=== PATIENT | male | born 1970 | race Caucasian/White ===

== ENCOUNTER 2020-04-29 07:44 | Outpatient (REF) | payer OTHER, SELFPAY ==
[2020-04-29 10:17] LABS: MANUAL DIFF FLAG NO
[2020-04-29 10:22] LABS: Basophils Percent Auto 0.4 % (0-2); Eosinophils Absolute Auto 0.1 X10*3/uL (0.0-0.4); Eosinophils Percent Auto 1.4 % (0-4); Hemoglobin 19.2 g/dl (14.0-18.0); Imm Gran Abs Auto 0.01 X10*3/uL (0.00-0.03); Imm Gran Pct Auto 0.2 % (0.0-0.4); Lymphocytes Absolute Auto 1.5 X10*3/uL (1.2-4.9); Lymphocytes Percent Auto 31.2 % (20-40); Mean Corpuscular HGB Conc 34.5 g/dl (31.0-36.0); Mean Corpuscular Hemoglobin 30.6 pg (27.0-33.0); Mean Corpuscular Volume 88.7 fL (80-98); Mean Platelet Volume 11.2 fL (9.4-12.4); Monocytes Absolute Auto 0.5 X10*3/uL (0.1-1.2); Monocytes Percent Auto 10.7 % (2-11); Neutrophils Absolute Auto 2.7 X10*3/uL (2.0-8.3); Neutrophils Percent Auto 56.1 % (45-73); Platelet Count 205 X10*3/uL (160-400); Red Blood Count 6.28 X10*6/uL (4.60-5.80); Red Cell Distribution Width 13.4 % (11.0-16.0); White Blood Count 4.8 X10*3/uL (4.8-10.8)
[2020-04-29 10:28] LABS: Hematocrit 55.7 % (42-52)
[2020-04-29 10:47] LABS: Alanine Aminotransferase 35 U/L (0-40); Albumin Level 4.2 g/dL (3.5-5.0); Alkaline Phosphatase 65 U/L (39-117); Anion Gap 14 (12-20); Aspartate Amino Transferase 28 U/L (5-37); Bilirubin Total 2.5 mg/dL (0.0-1.0); Blood Urea Nitrogen 18 mg/dL (9-16); Carbon Dioxide 28 mmol/L (22-29); Chloride 101 mmol/L (96-108); Cholesterol 216 mg/dL; Estimated Average Glucose 100 mg/dL; Estimated Glomerular Filt Rate > 60; Glucose Fasting 82 mg/dL (60-99); HDL Cholesterol 45 mg/dL; Hemoglobin A1c % 5.1 %; LDL Cholesterol Calculated 160 mg/dl; Potassium 4.6 mmol/l (3.3-5.1); Sodium 138 mmol/L (135-145); Total Protein 7.2 g/dL (6.5-8.0); Triglycerides 58 mg/dL
[2020-04-29 11:07] LABS: Creatinine Urine 122.12 mg/dL; Microalbum/Creatinine Ratio Ur 4.9 ug/mg cr
[2020-04-29 11:10] LABS: TSH reflex Free T4 1.18 mIU/mL (0.32-4.0)
== END 2020-04-29 07:45 | disposition home or self-care (01) ==
LOC: HO.10HDL 07:44
PROVIDERS: Visit Provider Physician Assistant
DX: I10 Essential (primary) hypertension (principal); Z13.1 Encounter for screening for diabetes mellitus; Z13.220 Encounter for screening for lipoid disorders; Z13.29 Encounter for screening for other suspected endocrine disorder
CPT/HCPCS: 36415; 80053; 80061; 82043; 83036; 84443; 85025

== ENCOUNTER → 2020-05-30 14:47 | Outpatient (BNVA) | payer OTHER, SELFPAY | PROVIDERS: PCP Physician Assistant; Visit Provider Internal Medicine | DX: R06.02 Shortness of breath (principal); R68.3 Clubbing of fingers; G47.33 Obstructive sleep apnea (adult) (pediatric) | CPT/HCPCS: 99202 ==

== ENCOUNTER 2020-06-05 05:17 | Emergency (ER) | payer OTHER, SELFPAY ==
--- NOTE | 2020-06-05 05:27 | CT_ITS ---
EXAMINATION: CT CERVICAL SPINE WITHOUT CONTRAST CLINICAL INFORMATION: Left-sided neck pain COMPARISON: None TECHNIQUE: Multidetector helical imaging was performed through the cervical spine. Coronal and sagittal reformatted images were created. This CT examination was performed using dose optimization techniques as appropriate, variously including the following: *Automated exposure control *Adjustment of mA and/or kV according to patient size (this includes techniques or standardized protocols for targeted exams where dose is matched to indication/reason for exam; i.e. extremities or head) *Use of iterative reconstruction technique DLP: 577 mGy-cm FINDINGS: There is slight reversal of the normal cervical lordosis. There is anatomic alignment of the vertebral bodies and posterior elements. Vertebral body heights are maintained. There is degenerative change at the atlantodens articulation. There is disc space narrowing at C4-C5 and C5-C6 with associated endplate osteophytes. There is mild bony foraminal narrowing on the left at C4-C5 and on the right at C4-C5 and C5-C6. No evidence of acute fracture. Chronic appearing calcifications are present posterior to the lower cervical spine. No prevertebral soft tissue swelling. Visualized portions of the lung apices demonstrate scarring. The thyroid gland is unremarkable. CT/CT cervical spine wo con IMPRESSION: Chronic/degenerative changes as described above. No acute findings identified.
--- NOTE | 2020-06-05 05:27 | ED.NECK ---
HPI - Neck Pain/Injury General Chief Complaint: Neck Pain/Injury Stated Complaint: neck pain Time Seen by Provider: 06/05/20 05:19 Source: patient Mode of arrival: ambulatory Limitations: no limitations History of Present Illness complaint: neck pain Onset (ago): day(s) (2) Place: home Radiation: left lateral Severity: severe Quality: sharp Duration: constant Relieving factors: none Exacerbating factors: movement of extremity and movement of neck Context: other (bought a new pillow woke up with neck pain) Associated symptoms: tingling (in LUE) Treatments prior to arrival: ibuprofen Related Data Home Medications Medication Instructions Recorded Confirmed valacyclovir 500 mg tablet mg PO 04/20/20 04/20/20 Previous Rx's Medication Instructions Recorded losartan 50 mg-hydrochlorothiazide 1 tab PO DAILY 30 Days #30 tab 05/24/20 12.5 mg tablet sertraline 50 mg tablet 50 mg PO DAILY 30 Days #30 tab 05/24/20 Allergies Allergy/AdvReac Type Severity Reaction Status Date / Time No Known Allergies Allergy Verified 04/20/20 16:25 Review of Systems Review of Systems: Constitutional : No Fever, No Chills ENT/Mouth : No Ear Pain, No Hoarseness, No sore throat, pos neck pain Eyes: No Eye Pain, No Swelling, No Redness, No Foreign Body Cardiovascular : No Chest Pain, No SOB Respiratory : No Cough, No Dyspnea Gastrointestinal : No Nausea, No Vomiting, No Diarrhea, No abdominal Pain Genitourinary : No Dysuria, No Hematuria Musculoskeletal : no joint pain, No Myalgias, No Joint Swelling Skin : No Skin lacerations, No rash Neuro : No Weakness, pos Numbness, No Loss of Consciousness, No Dizziness, No Headache Psych : No Anxiety/Panic, No Depression Heme/Lymph: no easy bruising, no Lymphadenopathy Endocrine : No Polyuria, No Polydipsia All other systems reviewed and are negative [facility] Past Medical History Attestation statement: The following information was validated with the patient. Medical History ZAHRAA (obstructive sleep apnea) Surgical History History of excision of lesion Family History Family History Father Medical history unknown Primary cancer of kidney Mother Hypertension Heart attack Paternal Uncle Brain cancer Brother Hypertension Social History Social History Alcohol intake: current Alcohol intake frequency: a few times a month Alcohol type: hard liquor Smoking Status: Never smoker Smoked in Last 30 Days: No Advance Directives: No Advance Directives Information Provided: No Physical Exam Vital Signs: Vital Signs: Last Vital Signs Temp 98.0 F 06/05/20 05:29 Pulse 76 06/05/20 06:27 Resp 18 06/05/20 06:27 BP 169/75 H 06/05/20 05:29 Pulse Ox 97 06/05/20 06:27 Body Mass Index 27.4 Appearance: Alert. Oriented X3. No acute distress. Eyes: Pupils equal, round and reactive to light. ENT: Pharynx normal. Neck: held in stiff spasm position, pain with turning to left, + spurlings on left side, pain on lateral left vertebral bodies no step offs, distal 2+ radial pulse, reports whole arm feels tingly, good strength CVS: Normal heart rate and rhythm. Pulses normal. Respiratory: No respiratory distress. Breath sounds normal. Abdomen: Soft and nontender. Skin: Skin warm and dry. Normal skin color. Normal skin turgor. Extremities: No lower extremity edema. No calf ttp Neuro: Oriented X 3. No motor deficit. No sensory deficit. Course Course Course Narrative: pain is out of proportion still uncomfortable will obtain labs and place IV may need MRI or CTA of neck at this time after medication, neuro exam has improved but still with significant pain, strength equal, SILT diffusely, will obtain CTA to r/o dissection signed out to Dr. Geronimo pending CTA MDM - Neck Pain/Injury MDM Narrative Medical decision making narrative: 49 yo male with reproduceable neck pain on left side with reported tingling in whole arm - will need pain control to improve spasm, CT scan for mass/obvious bulge - will recheck once pain more under control Lab Data Result diagrams: 06/05/20 06:19 06/05/20 06:19 Labs: Lab Results 06/05/20 06/05/20 06/05/20 Range/Units 06:19 06:19 06:19 WBC 6.7 (4.8-10.8) X10*3/uL RBC 5.98 H (4.60-5.80) X10*6/uL Hgb 18.5 H (14.0-18.0) g/dl Hct 52.6 H (42-52) % MCV 88.0 (80-98) fL MCH 30.9 (27.0-33.0) pg MCHC 35.2 (31.0-36.0) g/dl RDW 12.7 (11.0-16.0) % Plt Count 178 (160-400) X10*3/uL MPV 10.6 (9.4-12.4) fL Immature Gran % (Auto) 0.1 (0.0-0.4) % Neut % (Auto) 78.0 H (45-73) % Lymph % (Auto) 14.9 L (20-40) % [place] % (Auto) 5.8 (2-11) % Eos % (Auto) 0.9 (0-4) % Baso % (Auto) 0.3 (0-2) % Lymph # (Auto) 1.0 L (1.2-4.9) X10*3/uL [place] # (Auto) 0.4 (0.1-1.2) X10*3/uL Eos # (Auto) 0.1 (0.0-0.4) X10*3/uL Baso # (Auto) 0.0 (0.0-0.2) X10*3/uL Abs Immat Gran (auto) 0.01 (0.00-0.03) X10*3/uL Absolute Neuts (auto) 5.2 (2.0-8.3) X10*3/uL Absolute Nucleated RBC 0.000 (0.0-0.012) X10*3/uL Nucleated RBC % (auto) 0.0 (0.0-0.2) /100WBC Hold Blue Top SEE NOTE Sodium 140 (135-145) mmol/L Potassium 4.1 (3.3-5.1) mmol/l Chloride 104 (96-108) mmol/L Carbon Dioxide 27 (22-29) mmol/L Anion Gap 13 (12-20) BUN 22 H (9-16) mg/dL Creatinine 1.04 (0.5-1.4) mg/dL Estim Creat Clear Calc 117.9 Estimated GFR > 60 Random Glucose 111 (60-115) mg/dL Calcium 9.2 (8.4-10.2) mg/dL Discharge Plan Discharge Clinical Impression: Acute neck pain Prescriptions: No Action valacyclovir 500 mg tablet PO RF: 0 losartan-hydrochlorothiazide 50-12.5 mg tablet 1 tab PO DAILY 30 Days Qty: 30 RF: 1 sertraline 50 mg tablet 50 mg PO DAILY 30 Days Qty: 30 RF: 1
[2020-06-05 05:29] VITALS: BP 169/75; PULSE 75; RESP 16; TEMP 36.7; O2SAT 99; BMI 27.4
[2020-06-05] MEDS: oxyCODONE HCl Immed Release 5 MG TABLET 10 MG PO (05:34)
[2020-06-05] MEDS: diazePAM 5 MG TABLET PO (05:35)
[2020-06-05] MEDS: predniSONE 20 MG TABLET 60 MG PO (05:35)
[2020-06-05 06:23] LABS: Basophils Percent Auto 0.3 % (0-2); Eosinophils Absolute Auto 0.1 X10*3/uL (0.0-0.4); Eosinophils Percent Auto 0.9 % (0-4); Hematocrit 52.6 % (42-52); Hemoglobin 18.5 g/dl (14.0-18.0); Imm Gran Abs Auto 0.01 X10*3/uL (0.00-0.03); Imm Gran Pct Auto 0.1 % (0.0-0.4); Lymphocytes Percent Auto 14.9 % (20-40); Mean Corpuscular HGB Conc 35.2 g/dl (31.0-36.0); Mean Corpuscular Hemoglobin 30.9 pg (27.0-33.0); Mean Platelet Volume 10.6 fL (9.4-12.4); Monocytes Absolute Auto 0.4 X10*3/uL (0.1-1.2); Monocytes Percent Auto 5.8 % (2-11); Neutrophils Absolute Auto 5.2 X10*3/uL (2.0-8.3); Platelet Count 178 X10*3/uL (160-400); Red Blood Count 5.98 X10*6/uL (4.60-5.80); Red Cell Distribution Width 12.7 % (11.0-16.0); White Blood Count 6.7 X10*3/uL (4.8-10.8)
[2020-06-05] MEDS: 0.9 % Sodium Chloride 1,000 ML 999 ML IVCONT (06:23)
[2020-06-05] MEDS: HYDROmorphone HCl 1 MG/ML SYRINGE IVPUSH (06:23)
[2020-06-05 06:24] LABS: MANUAL DIFF FLAG NO
[2020-06-05 06:27] VITALS: PULSE 76; RESP 18; O2SAT 97
[2020-06-05 06:47] LABS: Anion Gap 13 (12-20); Blood Urea Nitrogen 22 mg/dL (9-16); Calcium 9.2 mg/dL (8.4-10.2); Carbon Dioxide 27 mmol/L (22-29); Chloride 104 mmol/L (96-108); Creatinine Clr Calc Pharmacy 117.9; Estimated Glomerular Filt Rate > 60; Glucose Random 111 mg/dL (60-115); Potassium 4.1 mmol/l (3.3-5.1); Sodium 140 mmol/L (135-145)
--- NOTE | 2020-06-05 06:54 | CT_ITS ---
EXAMINATION: CT HEAD WITHOUT CONTRAST CT ANGIOGRAM HEAD AND NECK CLINICAL INFORMATION: Left neck pain. Rule out dissection. COMPARISON: None TECHNIQUE: Noncontrast CT examination of the head was performed. Test bolus sequences followed by intravenous administration 70 mL of Omnipaque 350 intravenous contrast. Helical imaging was performed in the axial plane from the mediastinum to the skull vertex. Delayed postcontrast imaging of the head was also performed. The data was processed at the cytogenetics technologist's workstation for generation of MIP sequences. Three-dimensional volume rendered reformatted images were also generated at an offline 3-D workstation. This CT examination was performed using dose optimization techniques as appropriate, variously including the following: *Automated exposure control *Adjustment of mA and/or kV according to patient size (this includes techniques or standardized protocols for targeted exams where dose is matched to indication/reason for exam; i.e. extremities or head) *Use of iterative reconstruction technique The degree of stenosis determined by NASCET criteria. DLP: 2916 mGy-cm FINDINGS: SOFT TISSUES AND LUNG APICES: No overt abnormality is appreciated. CTA NECK: The aortic arch has a classic configuration and the major arch vessel origins are non-stenotic. The vertebral arteries are co-dominant and both vertebral origins are widely patent. Both common carotid arteries are normal in course and caliber. Both internal carotid arteries demonstrate mild atherosclerotic plaque without significant stenosis. CTA HEAD: There is normal opacification of the major intracranial vessels. No acute proximal large vessel occlusion, focal flow-limiting stenosis, or saccular intracranial aneurysm is identified. Incidental fenestration of the basilar artery. Right A1 is hypoplastic, a normal variant. No abnormal parenchymal enhancement or regional oligemia is visualized. HEAD (noncontrast and delayed): No intracranial mass, intercerebral edema, hemorrhage, or midline shift is evident. The ventricles and sulci are stable in size and configuration. No extra-axial collections are appreciated. No pathologic intracranial enhancement. Dural sinuses are patent. The paranasal sinuses are well-aerated and clear. CT/CT angio head neck IMPRESSION: * No evidence of arterial dissection within the neck. * No large vessel occlusion or hemodynamically significant stenosis within the arterial vasculature of the head and neck. 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 * No acute intracranial pathology. * Unremarkable CT examination of the head.
[2020-06-05] MEDS: iohexoL 350 MG/ML 100 ML INFUS..BTL IV (08:20)
[2020-06-05] MEDS: Ketorolac Tromethamine 30 MG/ML VIAL IVPUSH (09:57)
[2020-06-05 10:16] VITALS: BP 150/88; PULSE 82; RESP 18
== END 2020-06-05 10:17 | disposition home or self-care (01) ==
PROVIDERS: Emergency Provider Emergency Medicine; PCP Physician Assistant
DX: M54.2 Cervicalgia (principal); Z79.899 Other long term (current) drug therapy
CPT/HCPCS: 36415; 70496; 70498; 72125; 80048; 85025; 96361; 96374; 96375; 99284; J1170; J1885; Q9967

== ENCOUNTER → 2020-06-20 11:02 | Outpatient (REF) | payer OTHER, SELFPAY | LOC: HO.SL 11:02 | PROVIDERS: PCP Physician Assistant; Visit Provider Internal Medicine | DX: G47.33 Obstructive sleep apnea (adult) (pediatric) (principal) | CPT/HCPCS: 95806 ==

== ENCOUNTER → 2020-07-13 15:20 | Outpatient (BNVA) | payer OTHER, SELFPAY | PROVIDERS: PCP Physician Assistant; Visit Provider Internal Medicine | DX: G47.33 Obstructive sleep apnea (adult) (pediatric) (principal) | CPT/HCPCS: 99212 ==

== ENCOUNTER 2021-01-06 08:34 | Outpatient (REF) | payer OTHER, SELFPAY ==
[2021-01-06 11:43] LABS: MANUAL DIFF FLAG NO
[2021-01-06 11:54] LABS: Basophils Percent Auto 0.2 % (0-2); Eosinophils Percent Auto 0.9 % (0-4); Hematocrit 50.9 % (42-52); Hemoglobin 17.6 g/dl (14.0-18.0); Imm Gran Abs Auto 0.01 X10*3/uL (0.00-0.03); Imm Gran Pct Auto 0.2 % (0.0-0.4); Immature Retic Fraction 12.3 % (2.3-13.4); Lymphocytes Absolute Auto 1.5 X10*3/uL (1.2-4.9); Lymphocytes Percent Auto 33.4 % (20-40); Mean Corpuscular HGB Conc 34.6 g/dl (31.0-36.0); Mean Corpuscular Hemoglobin 31.3 pg (27.0-33.0); Mean Corpuscular Volume 90.4 fL (80-98); Mean Platelet Volume 11.2 fL (9.4-12.4); Monocytes Absolute Auto 0.4 X10*3/uL (0.1-1.2); Monocytes Percent Auto 8.8 % (2-11); Neutrophils Absolute Auto 2.5 X10*3/uL (2.0-8.3); Neutrophils Percent Auto 56.5 % (45-73); Platelet Count 234 X10*3/uL (160-400); Red Blood Count 5.63 X10*6/uL (4.60-5.80); Retic HGB Equivalent 35.4 pg (30.0-35.0); Reticulocyte Percent 1.8 % (0.5-1.8); Reticulocytes Absolute 0.102 X10*6/uL (0.026-0.095); White Blood Count 4.4 X10*3/uL (4.8-10.8)
[2021-01-06 12:00] LABS: Appearance Urine CLEAR; Color Urine YELLOW; Glucose Urine UA NEG (NEG); Leukocyte Esterase Urine NEG (NEG); Nitrite Urine NEG (NEG); Specific Gravity - Urine 1.015 (1.005-1.025); Urine Blood NEG (NEG); Urine Ketones NEG (NEG); Urine Protein TRACE MG/DL (NEG-TRACE)
[2021-01-06 12:20] LABS: Alanine Aminotransferase 23 U/L (0-40); Albumin Level 4.3 g/dL (3.5-5.0); Alkaline Phosphatase 64 U/L (39-117); Anion Gap 13 (12-20); Aspartate Amino Transferase 18 U/L (5-37); Bilirubin Total 2.2 mg/dL (0.0-1.0); Blood Urea Nitrogen 18 mg/dL (9-16); Calcium 9.8 mg/dL (8.4-10.2); Carbon Dioxide 28 mmol/L (22-29); Chloride 104 mmol/L (96-108); Cholesterol 232 mg/dL; Estimated Glomerular Filt Rate > 60; Glucose Random 91 mg/dL (60-115); HDL Cholesterol 47 mg/dL; Iron 187 mcg/dL (45-160); LDL Cholesterol Calculated 171 mg/dl; Percent Iron Saturation 64 % (15-50); Potassium 4.5 mmol/L (3.3-5.1); Sodium 140 mmol/L (135-145); Total Iron Binding Capacity 291 mcg/dL (228-428); Total Protein 7.3 g/dL (6.5-8.0); Triglycerides 71 mg/dL; Unsaturated Iron Binding 104 ug/dL
[2021-01-06 12:41] LABS: Ferritin 303 ng/mL (20-250); Free T4 (Free Thyroxine) 1.16 ng/dL (0.71-1.85); Thyroid Stimulating Hormone 1.02 uIU/mL (0.32-4.0)
[2021-01-06 12:51] LABS: Folate 11.3 ng/mL (> or = 4.0); Vitamin B12 352 pg/mL (200-900)
[2021-01-06 12:53] LABS: Erythrocyte Sedimentation Rate 2 MM/HR (0-15)
[2021-01-06 12:58] LABS: RBC Urine 0 /HPF (0); WBC Urine 0-2 /HPF (0-4)
== END 2021-01-06 08:35 | disposition home or self-care (01) ==
LOC: HO.HMGCLDS 08:34
PROVIDERS: PCP Physician Assistant; Visit Provider Internal Medicine
DX: D75.1 Secondary polycythemia (principal); E78.00 Pure hypercholesterolemia, unspecified
CPT/HCPCS: 36415; 80053; 80061; 81001; 82607; 82728; 82746; 83540; 84439; 84443; 85025; 85045; 85652

== ENCOUNTER 2021-04-27 15:19 | Outpatient (REF) | payer OTHER, SELFPAY ==
--- NOTE | ~2021-04-27 | US_ITS ---
EXAMINATION: US ABDOMEN COMPLETE CLINICAL INFORMATION: Other specified abnormal findings of blood chemistry. Right upper quadrant/epigastric pain. COMPARISON: None TECHNIQUE: Real-time imaging of the abdominal viscera. FINDINGS: PANCREAS: Normal. ABDOMINAL AORTA: The proximal, mid, and distal segments are normal in caliber. INFERIOR VENA CAVA: Visualized portions are normal. LIVER: Normal. The liver is normal in size. The liver contour is normal. Parenchymal echogenicity is normal. No focal hepatic lesion. There is no intrahepatic biliary duct dilatation seen. GALLBLADDER: The gallbladder is contracted limiting evaluation of wall thickness. The gallbladder is physiologically distended without evidence of stones, sludge, wall thickening or pericholecystic fluid. A 2 mm polyp is evident within the gallbladder. No sonographic Erickson sign is detected. COMMON BILE DUCT: Normal in caliber measuring 0.5 cm in diameter. RIGHT KIDNEY: Normal. No hydronephrosis. No renal calculi or focal parenchymal lesions. The kidney measures 12.9 cm in maximum dimension. LEFT KIDNEY: Normal. No hydronephrosis. No renal calculi or focal parenchymal lesions. The kidney measures 14.3 cm in maximum dimension. SPLEEN: Normal. The spleen measures 12.8 cm in maximum dimension. FREE FLUID: None. US/US abdomen complete IMPRESSION: 1. Small polyp within the contracted gallbladder. 2. Otherwise unremarkable abdominal ultrasound.
== END 2021-04-27 15:20 | disposition home or self-care (01) ==
LOC: HO.US 15:19
PROVIDERS: PCP Physician Assistant; Visit Provider Internal Medicine
DX: E80.6 Other disorders of bilirubin metabolism (principal); R79.89 Other specified abnormal findings of blood chemistry
CPT/HCPCS: 76700

== ENCOUNTER → 2021-05-23 08:57 | Outpatient (BNVA) | payer OTHER, SELFPAY | PROVIDERS: PCP Physician Assistant; Visit Provider Urology ==

== ENCOUNTER 2021-05-25 10:01 | Outpatient (REF) | payer OTHER, SELFPAY ==
--- NOTE | ~2021-05-25 | FL_ITS ---
EXAMINATION: UPPER GI AIR-CONTRAST STUDY WITH BARIUM SWALLOW CLINICAL INFORMATION: Epigastric pain. COMPARISON: None. TECHNIQUE: Routine upper GI air-contrast study and barium swallow was performed in upright view. FINDINGS: Following oral administration of thick barium and effervescent granules in upright view, there is normal propagation of bolus from the oral cavity through the pharynx and esophagus and into the stomach without any evidence of obstruction, narrowing or stricture. On oral administration of barium-coated turkey, there is normal propagation of bolus from the oral cavity through the pharynx and esophagus and into the stomach. Following placing patient in supine and prone lying position, there is mild gastroesophageal reflux without hiatal hernia. The course, caliber and peristalsis of the stomach, duodenal bulb and duodenal sweep are normal. The mucosal pattern of the stomach and the duodenal bulb is normal. FL/FL upper GI w air w Ba Swallow IMPRESSION: Mild gastroesophageal reflux without hiatal hernia. No obstructive or constricting lesions seen in the esophagus. The stomach and the duodenum are unremarkable.
== END 2021-05-25 10:02 | disposition home or self-care (01) ==
LOC: HO.XRAY 10:01
PROVIDERS: PCP Physician Assistant; Visit Provider Nurse Practitioner Family
DX: R10.13 Epigastric pain (principal)
CPT/HCPCS: 74246

== ENCOUNTER 2021-06-02 08:19 | Outpatient (REF) | payer OTHER, SELFPAY ==
[2021-06-02 09:17] LABS: Bilirubin Direct 0.5 mg/dL (0.0-0.5)
[2021-06-02 09:29] LABS: Lactate Dehydrogenase 162 U/L (118-273)
[2021-06-02 09:37] LABS: Ferritin 238 ng/mL (20-250); Prostate Specific Antigen 1.57 ng/mL (<0.05-4.0)
[2021-06-05 11:36] LABS: Haptoglobin 89 mg/dL (43-212)
[2021-06-07 15:17] LABS: Testosterone, Free 100.3 pg/mL (35.0-155.0); Testosterone, Total 619 ng/dL (250-1100)
== END 2021-06-02 08:20 | disposition home or self-care (01) ==
LOC: HO.LAB 08:19
PROVIDERS: Urology; Visit Provider Internal Medicine
DX: Z12.5 Encounter for screening for malignant neoplasm of prostate (principal); N52.9 Male erectile dysfunction, unspecified; E29.1 Testicular hypofunction
CPT/HCPCS: 36415; 82248; 82728; 83010; 83615; 84153; 84402; 84403

== ENCOUNTER 2021-06-22 09:12 | Outpatient (REF) | payer OTHER, SELFPAY ==
[2021-06-22 11:35] LABS: Blood Urea Nitrogen 18 mg/dL (9-16); Estimated Glomerular Filt Rate > 60
== END 2021-06-22 09:13 | disposition home or self-care (01) ==
LOC: HO.LAB 09:12
PROVIDERS: PCP Physician Assistant; Referring Provider Physician Assistant; Visit Provider Surgery
DX: R10.11 Right upper quadrant pain (principal); G89.29 Other chronic pain
CPT/HCPCS: 36415; 82565; 84520; 99202

== ENCOUNTER 2021-07-06 06:51 | Outpatient (REF) | payer OTHER, SELFPAY ==
--- NOTE | ~2021-07-06 | CT_ITS ---
EXAMINATION: CT ABDOMEN AND PELVIS WITH CONTRAST CLINICAL INFORMATION: Right upper quadrant pain COMPARISON: Previous abdominal ultrasound April 2021 TECHNIQUE: Multidetector volumetric images were obtained from the superior aspect of the liver through the pubic symphysis following administration 85 mL of Omnipaque 350 intravenous contrast. Sagittal and coronal reformatted images were obtained on the technologist's workstation. Oral contrast: Yes This CT examination was performed using dose optimization techniques as appropriate, variously including the following: *Automated exposure control *Adjustment of mA and/or kV according to patient size (this includes techniques or standardized protocols for targeted exams where dose is matched to indication/reason for exam; i.e. extremities or head) *Use of iterative reconstruction technique DLP: 587 mGy-cm FINDINGS: LUNG BASES: The visualized lung bases are unremarkable. LIVER, GALLBLADDER, AND BILIARY TREE: The liver is normal in size, shape, and attenuation. No focal hepatic lesion or biliary ductal dilatation is present. The gallbladder is unremarkable with no evidence of radiopaque gallstones, gallbladder wall thickening, or obvious pericholecystic inflammatory changes. PANCREAS: Unremarkable. SPLEEN: Unremarkable. ADRENAL GLANDS: Unremarkable. KIDNEYS AND URETERS: The kidneys are normal in size, shape, and attenuation. No hydronephrosis, hydroureter, or calculi seen. No perinephric stranding. BLADDER: Not optimally distended. GASTROINTESTINAL TRACT: There is stool throughout the colon. Small and large bowel is otherwise unremarkable. The appendix is slightly enlarged measuring up to10 mm. There is some air seen in the base of the appendix. The remainder of the appendix does not have any air. The periappendiceal fat is normal. No fat stranding or surrounding fluid is seen. It is difficult to exclude early appendicitis and clinical correlation is recommended. ABDOMINAL WALL: No significant hernia is appreciated. LYMPH NODES: Normal. VASCULAR: Unremarkable. PELVIC VISCERA: The prostate gland is slightly enlarged and protrudes into the base of the bladder. OSSEOUS STRUCTURES: There is mild curvature of the lumbar spine to the right. CT/CT abdomen pelvis w con IMPRESSION: Slightly dilated appendix. The periappendiceal fat is normal. It is difficult to exclude early or mild appendicitis Clinical correlation is recommended. Stool throughout the colon questionable for constipation. Slightly enlarged prostate gland. 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 Fleischner guidelines were followed.
[2021-07-06] MEDS: iohexoL 350 MG/ML 100 ML INFUS..BTL IV (09:41)
[2021-07-06] MEDS: Barium Sulfate Oral (Vanilla) 450 ML ORAL.SUSP 900 ML PO (09:42)
== END 2021-07-06 06:52 | disposition home or self-care (01) ==
LOC: HO.CT 06:51
PROVIDERS: Visit Provider Surgery
DX: G89.29 Other chronic pain (principal); R10.11 Right upper quadrant pain; N52.9 Male erectile dysfunction, unspecified
CPT/HCPCS: 74177; Q9967

== ENCOUNTER → 2021-07-17 09:47 | Outpatient (BNVA) | payer OTHER, SELFPAY | PROVIDERS: PCP Physician Assistant; Referring Provider Physician Assistant; Visit Provider Surgery | DX: R10.11 Right upper quadrant pain (principal) | CPT/HCPCS: 99212 ==

== ENCOUNTER 2021-09-04 16:48 | Outpatient (REF) | payer OTHER, SELFPAY ==
[2021-09-04 17:51] LABS: Syphilis Screen Nonreactive (Nonreactive)
[2021-09-05 05:10] LABS: HIV AB/AG Nonreactive (Nonreactive); HIV Num 1 0.07 S/CO (0.00-0.99); ~HepC Num1 0.15 S/CO (0.00-0.79); ~Hepatitis C Antibody Nonreactive (Nonreactive)
[2021-09-05 06:30] LABS: CT PCR NOT DETECTED (Not Detect.); NG PCR NOT DETECTED (Not Detect.)
[2021-09-09 21:51] LABS: HSV 1 IgM IFA Negative (Negative); HSV 2 IgM IFA Negative (Negative)
== END 2021-09-04 16:49 | disposition home or self-care (01) ==
LOC: HO.LAB 16:48
PROVIDERS: PCP Physician Assistant; Visit Provider Nurse Practitioner Family
DX: Z11.3 Encounter for screening for infections with a predominantly sexual mode of transmission (principal); Z11.4 Encounter for screening for human immunodeficiency virus [HIV]; R21 Rash and other nonspecific skin eruption
CPT/HCPCS: 86695; 86696; 86780; 86803; 87389; 87491; 87591

== ENCOUNTER 2022-03-12 07:14 | Outpatient (REF) | payer OTHER, SELFPAY ==
[2022-03-12 07:41] LABS: Hematocrit 52.9 % (42.0-52.0); Hemoglobin 18.3 g/dl (14.0-18.0); Mean Corpuscular HGB Conc 34.6 g/dl (31.0-36.0); Mean Corpuscular Hemoglobin 30.2 pg (27.0-33.0); Mean Corpuscular Volume 87.3 fL (80.0-98.0); Mean Platelet Volume 10.1 fL (9.4-12.4); Platelet Count 235 X10*3/uL (160-400); Red Blood Count 6.06 X10*6/uL (4.60-5.80); Red Cell Distribution Width 13.2 % (11.0-16.0); White Blood Count 5.1 X10*3/uL (4.8-10.8)
[2022-03-12 08:09] LABS: Alanine Aminotransferase 33 U/L (0-40); Albumin Level 4.2 g/dL (3.5-5.0); Alkaline Phosphatase 68 U/L (39-117); Anion Gap 14 (12-20); Aspartate Amino Transferase 22 U/L (5-37); Bilirubin Total 1.6 mg/dL (0.0-1.0); Blood Urea Nitrogen 18 mg/dL (9-16); Calcium 9.9 mg/dL (8.4-10.2); Carbon Dioxide 28 mmol/L (22-29); Chloride 103 mmol/L (96-108); Estimated Glomerular Filt Rate > 60; Glucose Fasting 106 mg/dL (60-99); Potassium 4.8 mmol/L (3.3-5.1); Sodium 140 mmol/L (135-145); Total Protein 7.3 g/dL (6.5-8.0)
[2022-03-12 08:31] LABS: Prostate Specific Antigen Scr 1.37 ng/mL (<0.05-4.0); TSH reflex Free T4 1.37 uIU/mL (0.32-4.0)
== END 2022-03-12 07:15 | disposition home or self-care (01) ==
LOC: HO.LAB 07:14
PROVIDERS: PCP Physician Assistant; Visit Provider Physician Assistant
DX: Z12.5 Encounter for screening for malignant neoplasm of prostate (principal); I10 Essential (primary) hypertension
CPT/HCPCS: 36415; 80053; 84153; 84443; 85027

== ENCOUNTER 2022-07-06 08:04 | Outpatient (REF) | payer OTHER, SELFPAY ==
--- NOTE | ~2022-07-06 | XR_ITS ---
EXAMINATION: XR HAND, RIGHT CLINICAL INFORMATION: Pain. COMPARISON: None TECHNIQUE: PA, lateral, and oblique views of the right hand. FINDINGS: The bones and soft tissues are normal. No fracture. Alignment is anatomic. Joint spaces are maintained. No erosions or soft tissue calcifications. XR/XR hand RT min 3V IMPRESSION: Normal right hand.
[2022-07-06 09:04] LABS: Anion Gap 14 (12-20); Blood Urea Nitrogen 16 mg/dL (9-16); Calcium 9.5 mg/dL (8.4-10.2); Carbon Dioxide 27 mmol/L (22-29); Chloride 104 mmol/L (96-108); Estimated Glomerular Filt Rate > 60; Glucose Random 111 mg/dL (60-115); Potassium 4.5 mmol/L (3.3-5.1); Sodium 140 mmol/L (135-145)
[2022-07-06 09:05] LABS: Creatinine Urine 156.29 mg/dL; Microalbum/Creatinine Ratio Ur 4.4 ug/mg cr
== END 2022-07-06 08:05 | disposition home or self-care (01) ==
LOC: HO.XRAY 08:04
PROVIDERS: PCP Physician Assistant; Visit Provider Nurse Practitioner Family
DX: N32.0 Bladder-neck obstruction (principal); N52.9 Male erectile dysfunction, unspecified; R35.1 Nocturia; R39.11 Hesitancy of micturition; M79.641 Pain in right hand; I10 Essential (primary) hypertension; Z79.899 Other long term (current) drug therapy
CPT/HCPCS: 36415; 73130; 80048; 82043; 99212

== ENCOUNTER 2022-09-05 08:48 | Outpatient (REF) | payer OTHER, SELFPAY ==
[2022-09-05 11:13] LABS: Hemoglobin 19.5 g/dl (14.0-18.0); Mean Corpuscular HGB Conc 33.6 g/dl (31.0-36.0); Mean Corpuscular Hemoglobin 31.1 pg (27.0-33.0); Mean Corpuscular Volume 92.4 fL (80.0-98.0); Mean Platelet Volume 11.3 fL (9.4-12.4); Platelet Count 234 X10*3/uL (160-400); Red Blood Count 6.28 X10*6/uL (4.60-5.80); Red Cell Distribution Width 13.1 % (11.0-16.0); White Blood Count 6.4 X10*3/uL (4.8-10.8)
[2022-09-05 11:17] LABS: Appearance Urine Clear; Color Urine Yellow; Glucose Urine UA Negative (Negative); Leukocyte Esterase Urine Negative (Negative); Nitrite Urine Negative (Negative); Specific Gravity - Urine 1.025 (1.005-1.025); Urine Blood Negative (Negative); Urine Ketones Negative (Negative); Urine Protein Trace mg/dL (Neg-Trace)
[2022-09-05 11:28] LABS: Alanine Aminotransferase 20 U/L (0-40); Albumin Level 4.1 g/dL (3.5-5.0); Alkaline Phosphatase 71 U/L (39-117); Anion Gap 12 (12-20); Aspartate Amino Transferase 16 U/L (5-37); Bilirubin Direct 0.4 mg/dL (0.0-0.5); Bilirubin Total 1.8 mg/dL (0.0-1.0); Blood Urea Nitrogen 14 mg/dL (9-16); Calcium 9.5 mg/dL (8.4-10.2); Carbon Dioxide 29 mmol/L (22-29); Chloride 103 mmol/L (96-108); Estimated Glomerular Filt Rate > 60; Glucose Random 91 mg/dL (60-115); Potassium 5.2 mmol/L (3.3-5.1); Sodium 139 mmol/L (135-145); Total Protein 7.1 g/dL (6.5-8.0)
[2022-09-05 11:48] LABS: Thyroid Stimulating Hormone 1.24 uIU/mL (0.32-4.0)
[2022-09-05 12:07] LABS: Erythrocyte Sedimentation Rate 2 MM/HR (0-15)
== END 2022-09-05 08:49 | disposition home or self-care (01) ==
LOC: HO.HMGCLDS 08:48
PROVIDERS: PCP Physician Assistant; Visit Provider Internal Medicine
DX: R10.9 Unspecified abdominal pain (principal)
CPT/HCPCS: 36415; 80048; 80076; 81003; 84443; 85027; 85652

== ENCOUNTER 2022-09-06 02:38 | Emergency (ER) | payer OTHER, SELFPAY ==
--- NOTE | ~2022-09-06 | CT_ITS ---
EXAMINATION: CT ABDOMEN AND PELVIS WITHOUT CONTRAST CLINICAL INFORMATION: Nonspecific right upper abdominal pain. COMPARISON: 07/06/2021 TECHNIQUE: Multidetector volumetric imaging was performed from the superior aspect of the liver through the pubic symphysis. Sagittal and coronal reformatted images were obtained on the technologist's workstation. This CT examination was performed using dose optimization techniques as appropriate, variously including the following: *Automated exposure control *Adjustment of mA and/or kV according to patient size (this includes techniques or standardized protocols for targeted exams where dose is matched to indication/reason for exam; i.e. extremities or head) *Use of iterative reconstruction technique DLP: 572 mGy-cm FINDINGS: LUNG BASES: Dependent atelectasis bilaterally. Normal heart size. LIVER, GALLBLADDER, AND BILIARY TREE: The liver is normal in size, shape, and attenuation. No focal hepatic lesion or biliary ductal dilatation is present. The gallbladder is unremarkable with no evidence of radiopaque gallstones, gallbladder wall thickening, or obvious pericholecystic inflammatory changes. PANCREAS: Unremarkable. SPLEEN: Unremarkable. ADRENAL GLANDS: Unremarkable. KIDNEYS AND URETERS: The kidneys are normal in size, shape, and attenuation. No hydronephrosis, hydroureter, or calculi seen. Mild symmetric perinephric stranding. BLADDER: Unremarkable. GASTROINTESTINAL TRACT: The stomach is unremarkable. Normal caliber small bowel. No obstruction. No colonic wall thickening or inflammation. Normal appendix. No free air or free fluid. ABDOMINAL WALL: No significant hernia is appreciated. LYMPH NODES: Normal. VASCULAR: Unremarkable. PELVIC VISCERA: The prostate and seminal vesicles are unremarkable. OSSEOUS STRUCTURES: No acute or suspicious osseous abnormality. Mild degenerative change throughout the spine. Vacuum disc phenomenon at L5-S1. CT/CT abdomen pelvis wo IV con IMPRESSION: No acute finding in the abdomen or pelvis. No inflammatory change. Fleischner guidelines were followed.
[2022-09-06 02:56] VITALS: BP 137/88; PULSE 100; RESP 19; TEMP 36.6; O2SAT 93; BMI 27.8
[2022-09-06 03:01] VITALS: BP 121/91; PULSE 100; RESP 20; TEMP 36.8; O2SAT 96
[2022-09-06 03:02] LABS: Hematocrit 54.8 % (42.0-52.0); Hemoglobin 18.6 g/dl (14.0-18.0); Mean Corpuscular HGB Conc 33.9 g/dl (31.0-36.0); Mean Corpuscular Hemoglobin 30.7 pg (27.0-33.0); Mean Corpuscular Volume 90.4 fL (80.0-98.0); Mean Platelet Volume 10.5 fL (9.4-12.4); Platelet Count 234 X10*3/uL (160-400); Red Blood Count 6.06 X10*6/uL (4.60-5.80); White Blood Count 7.8 X10*3/uL (4.8-10.8)
[2022-09-06 03:16] LABS: Alanine Aminotransferase 22 U/L (0-40); Alkaline Phosphatase 70 U/L (39-117); Anion Gap 13 (12-20); Aspartate Amino Transferase 17 U/L (5-37); Bilirubin Total 1.6 mg/dL (0.0-1.0); Blood Urea Nitrogen 16 mg/dL (9-16); Calcium 8.9 mg/dL (8.4-10.2); Carbon Dioxide 24 mmol/L (22-29); Chloride 105 mmol/L (96-108); Creatinine Clr Calc Pharmacy 113.2; Estimated Glomerular Filt Rate > 60; Glucose Random 101 mg/dL (60-115); Lipase 23 U/L (8-78); Sodium 138 mmol/L (135-145); Total Protein 6.9 g/dL (6.5-8.0)
--- NOTE | 2022-09-06 03:29 | ED.ABDPAIN ---
HPI - Abdominal Pain General Chief Complaint: Abdominal Pain Stated Complaint: appendix pain? Time Seen by Provider: 09/06/22 03:15 Source: patient Mode of arrival: ambulatory Limitations: no limitations History of Present Illness HPI narrative: Patient with history of right upper quadrant pain since 07/04 was seen at by surgeon had ultrasound and CT scan comes here for similar pain for last 3 days was seen at urgent care center yesterday labs were done which were normal started on Prilosec patient still complaining of pain no nausea no vomiting or diarrhea Related Data Previous Rx's Medication Instructions Recorded ketoconazole 2 % shampoo 1 appl topical 3XW 30 days #120 mL 12/26/21 triamcinolone acetonide 0.1 % 1 appl topical DAILY 30 days #60 mL 12/26/21 lotion sildenafil 100 mg tablet 100 mg PO DAILY PRN sexual 02/12/22 activity 30 days #30 tabs tadalafil 5 mg tablet 5 mg PO DAILY 90 days #90 tabs 07/06/22 valsartan 80 mg tablet 80 mg PO DAILY #30 tabs 08/02/22 hydroxyzine HCl 25 mg tablet 25 mg PO ONCE PRN anxiety 10 days 08/20/22 #10 tabs omeprazole 20 mg capsule,delayed 20 mg PO DAILY 30 days #30 caps 09/05/22 release tramadol 50 mg tablet 50 mg PO Q6H PRN pain #20 tabs 09/06/22 Allergies Allergy/AdvReac Type Severity Reaction Status Date / Time No Known Allergies Allergy Verified 09/05/22 08:51 Review of Systems Review of Systems Yes all other systems are reviewed and are negative PMFSH Past Medical History Medical History Chronic RUQ pain Erectile dysfunction HTN (hypertension) ZAHRAA (obstructive sleep apnea) Surgical History History of excision of lesion History of neck surgery History of shoulder surgery History of vasectomy Family History Family History Father Medical history unknown Primary cancer of kidney Mother Hypertension Heart attack Paternal Uncle Brain cancer Brother Hypertension Other Mental health disorder Social History Social History Housing: House Alcohol intake: current Alcohol intake frequency: does not drink Alcohol type: hard liquor Patient Tobacco Use Status: Never used Tobacco e-Cigarette/Vaping Use: Never Used Second Hand Smoke Exposure: No Advance Directives: No Advance Directives Information Provided: Yes service: No Current occupational status: employed Cognitive needs: No Hearing needs: No Vision needs: No Physical Exam ED Vital Signs: Vital Signs - 24 hr 09/06/22 02:56 09/06/22 03:01 09/06/22 04:02 Temperature 97.9 F 98.3 F Pulse Rate 100 100 78 Respiratory Rate 19 20 16 Blood Pressure 137/88 121/91 H 139/91 H Pulse Oximetry 93 96 94 Oxygen Delivery Method Room Air Room Air Room Air BMI result Body Mass Index 27.8 Appearance: Alert. Oriented X3. No acute distress. Eyes: No pallor or icterus ENT: Pharynx normal. Oral Mucosa moist Neck: Normal inspection. Neck supple. CVS: Normal heart rate and rhythm. Pulses normal. Respiratory: No respiratory distress. Equal air entry bilateral, Abdomen: Soft , tender right upper quadrant Bowel sounds are present, no mass palpable, no CVA tenderness Skin: Skin warm and dry. Normal skin color. Normal skin turgor. Extremities: No lower extremity edema. No calf tenderness Neuro: Oriented X 3. No motor deficit. Medical Decision Making Medical Decision Making [facility] Narrative: Patient chronic abdominal pain with previous workup negative CT scan again was negative discharge patient home on tramadol Lab Data [facility] Lab Attestation statement: I reviewed the patient's lab results. 09/06/22 02:55 09/06/22 02:55 Labs: Lab Results 09/06/22 09/06/22 Range/Units 02:55 02:55 WBC 7.8 (4.8-10.8) X10*3/uL RBC 6.06 H (4.60-5.80) X10*6/uL Hgb 18.6 H (14.0-18.0) g/dl Hct 54.8 H (42.0-52.0) % MCV 90.4 (80.0-98.0) fL MCH 30.7 (27.0-33.0) pg MCHC 33.9 (31.0-36.0) g/dl RDW 13.0 (11.0-16.0) % Plt Count 234 (160-400) X10*3/uL MPV 10.5 (9.4-12.4) fL Absolute Nucleated RBC 0.000 (0.0-0.012) X10*3/uL Nucleated RBC % (auto) 0.0 (0.0-0.2) /100WBC Sodium 138 (135-145) mmol/L Potassium 4.0 D (3.3-5.1) mmol/L Chloride 105 (96-108) mmol/L Carbon Dioxide 24 (22-29) mmol/L Anion Gap 13 (12-20) BUN 16 (9-16) mg/dL Creatinine 1.06 (0.5-1.4) mg/dL Estim Creat Clear Calc 113.2 Estimated GFR > 60 Random Glucose 101 (60-115) mg/dL Calcium 8.9 D (8.4-10.2) mg/dL Total Bilirubin 1.6 H (0.0-1.0) mg/dL AST 17 (5-37) U/L ALT 22 (0-40) U/L Alkaline Phosphatase 70 (39-117) U/L Total Protein 6.9 (6.5-8.0) g/dL Albumin 4.0 (3.5-5.0) g/dL Lipase 23 (8-78) U/L Discharge Plan Discharge Clinical Impression: Abdominal pain, chronic, right upper quadrant Patient Disposition: Home, Self-Care Instructions: Chronic Abdominal Pain (ED) Additional Instructions: Continue medications as prescribed by your PCP Avoid fried food Follow-up with your PCP/GI specialist Avoid ibuprofen/Advil Tramadol for pain Prescriptions: New tramadol 50 mg tablet 50 mg PO Q6H PRN (Reason: pain) Qty: 20 0RF No Action sildenafil 100 mg tablet 100 mg PO DAILY PRN (Reason: sexual activity) 30 Days Qty: 30 2RF Rx Instructions: administer 60 minutes before intended activity valsartan 80 mg tablet 80 mg PO DAILY Qty: 30 1RF hydroxyzine HCl 25 mg tablet 25 mg PO ONCE PRN (Reason: anxiety) 10 Days Qty: 10 0RF ketoconazole 2 % shampoo 1 appl topical 3XW 30 Days Qty: 120 0RF triamcinolone acetonide 0.1 % lotion 1 appl topical DAILY 30 Days Qty: 60 0RF omeprazole 20 mg capsule,delayed release(DR/EC) 20 mg PO DAILY 30 Days Qty: 30 4RF tadalafil 5 mg tablet 5 mg PO DAILY 90 Days Qty: 90 0RF Rx Instructions: Daily for prostate Interventions: ED Discharge Assessment Last Done: 09/06/22 04:52 Discharge Date/Time: 09/06/22 04:52
[2022-09-06 04:02] VITALS: BP 139/91; PULSE 78; RESP 16; O2SAT 94
== END 2022-09-06 04:52 | disposition home or self-care (01) ==
PROVIDERS: Emergency Provider Internal Medicine; PCP Physician Assistant
DX: G89.29 Other chronic pain (principal); R10.11 Right upper quadrant pain; I10 Essential (primary) hypertension; E78.00 Pure hypercholesterolemia, unspecified; Z79.899 Other long term (current) drug therapy
CPT/HCPCS: 36415; 74176; 80053; 83690; 85027; 99284

== ENCOUNTER → 2022-11-30 08:59 | Outpatient (BNV) | payer OTHER, SELFPAY | PROVIDERS: PCP Physician Assistant; Visit Provider Internal Medicine Medical Oncology | DX: D75.1 Secondary polycythemia (principal) | CPT/HCPCS: 99213; 99214 ==

== ENCOUNTER 2022-11-30 09:52 | Outpatient (REF) | payer OTHER, SELFPAY ==
[2022-11-30 10:14] LABS: Baso%MD 0.3 %; Eos%MD 0.8 %; Hematocrit 54.4 % (42.0-52.0); Hemoglobin 18.5 g/dl (14.0-18.0); IG%MD 0.2 %; Lymph%MD 23.2 %; Mean Corpuscular Volume 88.2 fL (80.0-98.0); Mean Platelet Volume 10.2 fL (9.4-12.4); Mono%MD 11.1 %; Neut%MD 64.4 %; Platelet Count 206 X10*3/uL (160-400); Red Blood Count 6.17 X10*6/uL (4.60-5.80); Red Cell Distribution Width 14.2 % (11.0-16.0)
[2022-11-30 10:48] LABS: Appearance Urine Clear; Color Urine Yellow; Glucose Urine UA Negative (Negative); Leukocyte Esterase Urine Negative (Negative); Nitrite Urine Negative (Negative); PH 6.5 (5.0-9.0); Specific Gravity - Urine 1.025 (1.005-1.025); Urine Blood Negative (Negative); Urine Ketones Negative (Negative); Urine Protein Negative (Neg-Trace)
[2022-11-30 10:51] LABS: Band Neutrophils Percent 0 % (3-5); Basophils Abs Manual 0.1 X10*3/uL (0.0-0.2); Basophils Percent Manual 2 % (0-2); Lymphocytes Absolute Manual 1.6 X10*3/uL (1.2-4.9); Lymphocytes Percent Manual 26 % (20-40); Monocytes Absolute Manual 0.7 X10*3/uL (0.1-1.2); Monocytes Percent Manual 11 % (2-11); Neutrophils Absolute Manual 3.7 X10*3/uL (2.0-8.3); Neutrophils Percent Manual 61 % (45-73)
[2022-11-30 10:52] LABS: Platelet Estimate NORMAL (NORMAL); RBC Morphology NORMAL
[2022-11-30 10:53] LABS: Platelet Morphology Comment NORMAL
[2022-11-30 11:06] LABS: Alanine Aminotransferase 27 U/L (0-40); Albumin Level 3.9 g/dL (3.5-5.0); Alkaline Phosphatase 63 U/L (39-117); Anion Gap 10 (12-20); Aspartate Amino Transferase 23 U/L (5-37); Blood Urea Nitrogen 18 mg/dL (9-16); Calcium 9.2 mg/dL (8.4-10.2); Carbon Dioxide 27 mmol/L (22-29); Chloride 103 mmol/L (96-108); Estimated Glomerular Filt Rate > 60; Glucose Random 81 mg/dL (60-115); Potassium 4.2 mmol/L (3.3-5.1); Sodium 136 mmol/L (135-145)
== END 2022-11-30 09:53 | disposition home or self-care (01) ==
LOC: HO.BBR 09:52
PROVIDERS: Visit Provider Internal Medicine Medical Oncology
DX: D75.1 Secondary polycythemia (principal)
CPT/HCPCS: 36415; 80053; 81003; 85007; 85018; 85027; 99195

== ENCOUNTER 2023-01-04 08:46 | Outpatient (REF) | payer OTHER, SELFPAY | END 2023-01-04 08:47 | disposition home or self-care (01) | LOC: HO.BBR 08:46 | PROVIDERS: PCP Physician Assistant; Visit Provider Internal Medicine Medical Oncology | DX: D75.1 Secondary polycythemia (principal) | CPT/HCPCS: 85018; 99195 ==

== ENCOUNTER 2023-02-08 07:50 | Outpatient (REF) | payer OTHER, SELFPAY | END 2023-02-08 07:51 | disposition home or self-care (01) | LOC: HO.BBR 07:50 | PROVIDERS: PCP Physician Assistant; Visit Provider Internal Medicine Medical Oncology | DX: D75.1 Secondary polycythemia (principal) | CPT/HCPCS: 85018; 99195 ==

== ENCOUNTER 2023-02-13 10:59 | Outpatient (AMB) | payer OTHER, SELFPAY ==
--- NOTE | 2023-02-13 11:01 | MHC.OFFVIS ---
Intake Intake Visit Reasons: 3M Telemedicine Intake Note: Patient is present for Follow Up- Erectile Dysfunction Urology Med: Sildenafil, Tadalafil Antibiotic Allergy: None Blood Thinner: None Extractor Plant Operator Required: No Allergies No Known Allergies Allergy (Verified 10/18/22 08:44) Medication List - Last Reconciled 02/13/23 by Elijah Chapman MD doxycycline hyclate 100 mg PO BID hydroxyzine HCl 25 mg PO ONCE PRN 10 days omeprazole 20 mg PO DAILY 30 days sildenafil 100 mg PO DAILY PRN 30 days tadalafil 5 mg PO DAILY 90 days valsartan 160 mg PO DAILY 30 days HPI HPI Comments History of Present Illness Details [place] GALDAMEZ is a very pleasant male. He is a patient of Dr Mccarthy. He is seen for the following urologic conditions - erectile dysfunction - lower urinary tract symptoms Telemedicine Evaluation 15 min Consultation Lozo Gilles Video attempted Continued good effect from daily tadalafil for lower urinary tract symptoms. Reduced urinary hesitancy and frequency Improved baseline erections with nocturnal erections Still uses on demand Viagra when indicated 06/03 T620 Lower urinary tract symptoms Progression of past 12 months Nocturia x2, urinary hesitancy No family history Trial daily tadalafil 5 mg Erectile dysfunction Switched to daily tadalafil 5 mg secondary to prostate issues Renewal provided Baseline testosterone 06/03 620, PSA 1.6, 03/03 1.4 Associated obstructive sleep apnea Also high cholesterol and blood pressure [facility] Medical History Chronic RUQ pain Erectile dysfunction HTN (hypertension) ZAHRAA (obstructive sleep apnea) Surgical History History of neck surgery History of shoulder surgery History of vasectomy History of excision of lesion Family History Father Medical history unknown Primary cancer of kidney Mother Hypertension Heart attack Paternal Uncle Brain cancer Brother Hypertension Other Mental health disorder Social History Housing: House Alcohol intake: current Alcohol intake frequency: does not drink Alcohol type: hard liquor Patient Tobacco Use Status: Never used Tobacco e-Cigarette/Vaping Use: Never Used Second Hand Smoke Exposure: No service: No Current occupational status: employed Current occupational exposures/hazards: No Cognitive needs: No Hearing needs: No Vision needs: No Review of Systems Const All systems reviewed & are unremarkable except as noted in HPI and below Reports no additional complaints Resp Reports no additional complaints GI Reports no additional complaints Reports as per HPI Musc Reports no additional complaints Physical Exam Telemedicine evaluation Appropriate responses Regular breathing rate and rhythm HEENT Head: Yes normal to inspection Ears: hearing grossly normal bilaterally Eyes General: appearance normal, both eyes and all related structures Neck Neck: Yes normal visual inspection Chest Chest palpation & inspection: normal inspection of the chest Resp Effort & Inspection: normal respiratory effort and able to speak in complete sentences Assessment & Plan Assessment & Plan (1) Erectile dysfunction: Code(s): N52.9 - Male erectile dysfunction, unspecified Qualifiers: Erectile dysfunction type: vasculogenic Vasculogenic erectile dysfunction type: due to arterial insufficiency Qualified Code(s): N52.01 - Erectile dysfunction due to arterial insufficiency (2) Urinary hesitancy: Code(s): R39.11 - Hesitancy of micturition Plan 6 month follow-up Medications: Changed From sildenafil administer 60 minutes before intended activity 100 mg PO DAILY 30 days PRN 30 tabs 2RF sexual activity N52.9 - Male erectile dysfunction, unspecified To sildenafil administer 60 minutes before intended activity 100 mg PO DAILY 30 days PRN 30 tabs 2RF sexual activity N52.9 - Male erectile dysfunction, unspecified Refilled tadalafil Daily for prostate 5 mg PO DAILY 90 days 90 tabs 1RF N52.9 - Male erectile dysfunction, unspecified, R39.11 - Hesitancy of micturition Patient Instructions: Imaging studies, laboratory and physical exam results were discussed and reviewed in detail. No major barriers to patient understanding were identified. An opportunity to ask questions regarding the treatment plan was provided. All questions were answered. The patient expressed understanding and agreement with the above treatment plan. The patient is aware they should contact our office by phone for worsening of their current condition or the appearance of new urologic symptoms. Compliance is encouraged with any medications and followup testing that is ordered. It is a privilege to participate in the urologic care of your patient. If you have any questions or concerns regarding treatment for the above conditions, or other urologic issues, please do not hesitate to contact me. The office telephone contact is [phone]. This note is constructed using voice recognition software. While every effort has been made to ensure accuracy tiger machine operator errors may have been included. Yours sincerely, Dr Elijah Chapman MD, [facility] - Urology Providers of Expert, Compassionate Care for the Genitourinary System Telehealth Telehealth Location of provider rendering services: practice address Location of patient: address on file Patient Identification confirmed using: Name, : Yes Telehealth method: video Patient verbally consented to treatment: Yes Patient verbally consented to billing insurance company: Yes Patient informed of any privacy concerns related to visit: Yes Coding Level of Care Code Tele Est Pt Level 3 (94866) Diagnoses Erectile dysfunction due to arterial insufficiency N52.01 Erectile dysfunction type: vasculogenic Vasculogenic erectile dysfunction type: due to arterial insufficiency Urinary hesitancy R39.11
== END 2023-02-13 11:33 | disposition home or self-care (01) ==
LOC: HO.HUSH 10:59
PROVIDERS: PCP Physician Assistant; Visit Provider Urology
DX: N52.01 Erectile dysfunction due to arterial insufficiency (principal); R39.11 Hesitancy of micturition
CPT/HCPCS: 99213

== ENCOUNTER → 2023-02-13 10:59 | Outpatient (BNVA) | payer OTHER, SELFPAY | PROVIDERS: PCP Physician Assistant; Visit Provider Urology ==

== ENCOUNTER 2023-02-15 06:59 | Outpatient (REF) | payer OTHER, SELFPAY ==
[2023-02-15 07:47] LABS: Hematocrit 50.9 % (42.0-52.0); Hemoglobin 17.4 g/dl (14.0-18.0); Mean Corpuscular HGB Conc 34.2 g/dl (31.0-36.0); Mean Corpuscular Hemoglobin 29.7 pg (27.0-33.0); Mean Corpuscular Volume 86.9 fL (80.0-98.0); Mean Platelet Volume 10.9 fL (9.4-12.4); Platelet Count 235 X10*3/uL (160-400); Red Blood Count 5.86 X10*6/uL (4.60-5.80); Red Cell Distribution Width 12.5 % (11.0-16.0); White Blood Count 5.6 X10*3/uL (4.8-10.8)
== END 2023-02-15 07:00 | disposition home or self-care (01) ==
LOC: HO.LAB 06:59
PROVIDERS: PCP Physician Assistant; Visit Provider Physician Assistant
DX: E78.00 Pure hypercholesterolemia, unspecified (principal); I10 Essential (primary) hypertension
CPT/HCPCS: 36415; 80053; 80061; 85027

== ENCOUNTER 2023-02-18 08:28 | Outpatient (AMB) | payer OTHER, SELFPAY ==
--- NOTE | 2023-02-18 08:41 | MHC.PC.OV ---
Vital Signs 02/18/23 08:43 Height 6 ft 8 in Weight 250 lb 6 oz BMI 27.5 BP 120/80 Blood Pressure Location Lt brachial Position Sitting Pulse 88 Pulse Source Pulse Oximeter Pulse Oximetry (%) 97 Oxygen Delivery Method Room Air Intake Visit Reasons: f/u HTN/ HLD/ Poly Intake Note: Patient is here to follow up on HTN, HLD, Polycythemia. Chemist Water Purification Required: No Superintendent Refuse Disposal: Not Required per policy Accompanied by: Self / Same As Patient Allergies No Known Allergies Allergy (Verified 02/18/23 08:52) Medication List - Last Reconciled 02/18/23 by Bonifacio Mccarthy PA-C doxycycline hyclate 100 mg PO BID omeprazole 20 mg PO DAILY 30 days sildenafil 100 mg PO DAILY PRN 30 days tadalafil 5 mg PO DAILY 90 days valsartan 160 mg PO DAILY 30 days Tobacco use date assessed: 02/18/23 Dental Screening Dental Screen Date: 02/18/23 Did you have a dental visit in the last 12 months?: Yes Did you have a dental problem in the last 6 months where you did not have access to dental care?: No Was dental information given to patient?: Patient has dentist HPI f/u HTN/ HLD/ Poly HPI Details Patient is a 52 year male here today for a follow-up visit.? Patient has a past medical history significant for hyperlipidemia, obstructive sleep apnea, polycythemia, generalized anxiety disorder, hypertension and recurrent folliculitis. .. Hypertension:? Blood pressure today in office today acceptable..? Continues to be compliant with valsartan 160 mg.? He otherwise denies any vision issues, dizziness, headaches her chest discomforts.? He does report at home blood pressures have been better controlled 130s to 140 systolic. .. Hyperlipidemia: Most recent lipid panel showing improved total cholesterol and LDL. He has been making lifestyle modifications to reduce cholesterol. .. Folliculitis Scalp:? Patient has followed up with a distribution collection operator and will be on extended antibiotic treatment with doxycycline. He reports it has been helpful for him. .. Polycythemia: Noted elevated RBCs and hemoglobin, likely due to untreated obstructive sleep apnea. Is followed by Hematology. Has tried to treat his obstructive sleep apnea with CPAP machine though has been unable to tolerate this. .. Obstructive sleep apnea: Has been found to have severe obstructive sleep apnea though has been unable to tolerate CPAP mask and has luna CPAP treatment. Continues to have sequelae untreated obstructive sleep apnea on treated with elevated blood pressures, daytime somnolence, finger clubbing, polycythemia. He wonders if he is a candidate for inspire Laboratory Tests 01/06/21 03/12/22 09/05/22 08:42 07:26 08:50 RBC Hgb Hct Creatinine Random Glucose Total Bilirubin 1.6 H 1.8 H Cholesterol 232 LDL Cholesterol, C alc 171 TSH 09/05/22 09/06/22 02/15/23 08:50 02:55 07:05 RBC 6.06 H 5.86 H Hgb 18.6 H 17.4 Hct 54.8 H Creatinine 1.06 Random Glucose 101 Total Bilirubin 1.7 H Cholesterol 216 H LDL Cholesterol, C alc 157 H TSH 1.24 PFSH Medical History (Updated 02/18/23 @ 09:15 by Bonifacio Mccarthy PA-C) Dissecting folliculitis of scalp Cervical spondylitis with radiculitis Chronic RUQ pain Erectile dysfunction HTN (hypertension) ZAHRAA (obstructive sleep apnea) Surgical History History of neck surgery History of shoulder surgery History of vasectomy History of excision of lesion Family History Father Medical history unknown Primary cancer of kidney Mother Hypertension Heart attack Paternal Uncle Brain cancer Brother Hypertension Other Mental health disorder Social History Housing: House Alcohol intake: current Alcohol intake frequency: holidays/special occasions only Alcohol type: hard liquor Patient Tobacco Use Status: Never used Tobacco e-Cigarette/Vaping Use: Never Used Second Hand Smoke Exposure: No service: No Current occupational status: employed Current occupational exposures/hazards: No Cognitive needs: No Hearing needs: No Vision needs: No Questionnaire Thrive Questionnaire Date Thrive assessed: 06/28/22 HAL-7 AMB Questionnaire HAL-7 Date HAL - 7 assessed: 06/28/22 Source: Developed by Drs. Alin Glaser, Renita Camacho, Kevin Mendoza and colleagues, with an educational juan pablo from [employer]. Review of Systems Const Denies headache(s) Eyes Denies loss of vision ENT Denies vertigo, Denies dizziness, Denies headache(s) and Denies sore throat Card Denies chest pain, Denies leg edema and Denies lightheadedness Resp Denies cough, Denies hemoptysis and Denies wheezing GI Denies abdominal pain, Denies melena, Denies constipation, Denies diarrhea and Denies vomiting Denies dysuria, Denies urinary frequency and Denies urinary urgency Musc Denies arthralgias, Denies joint swelling, Denies numbness and Denies tingling Neuro Denies Abnormal speech present, Denies behavioral changes, Denies vertigo, Denies dizziness, Denies headache(s), Denies loss of vision, Denies memory loss, Denies numbness and Denies tingling Psych Denies anxiety, Denies behavioral changes, Denies depression, Denies memory loss and Denies panic attacks Kurtis/Lymph Denies easy bleeding and Denies easy bruising Aller/Immun Denies wheezing Physical exam (Primary Care) Vital Signs: Last Vital Signs Pulse 88 02/18/23 08:43 BP 120/80 02/18/23 08:43 Pulse Ox 97 02/18/23 08:43 Oxygen Delivery Method Room Air 02/18/23 08:43 BMI result Body Mass Index 27.5 Tobacco/Smoking Status: Tobacco use Status Tobacco use date assessed 02/18/23 02/18/23 08:48 Patient Tobacco Use Status Never used Tobacco 02/18/23 08:48 e-Cigarette/Vaping Use Never Used 02/18/23 08:48 Thrive Assessment: Date of Thrive Assessment Date Thrive assessed 06/28/22 02/18/23 08:48 Const General: healthy appearing, no acute distress, alert and awake Nutritional Appearance: well nourished Orientation/consciousness: oriented to person, oriented to place and oriented to time HENMT Ears: TM's normal bilaterally General nose exam: Normal nasal mucous membranes and turbinates present Eyes Conjunctivae: conjunctivae normal Sclerae: sclerae normal Pupils: Equal, round and reactive pupils present Neck Neck: Yes no lymphadenopathy and Yes no JVD Thyroid: Thyroid normal Carotids: no bruits Resp Effort & Inspection: normal respiratory effort and not tachypneic Auscultation: no crackles, no rales, no rhonchi and no wheezes Cardio Rate: regular rate Rhythm: regular rhythm Heart sounds: no murmurs and normal S1 and S2 GI Palpation (GI): Soft to palpation, nontender, no hepatomegaly and no splenomegaly Auscultation: normal bowel sounds Skin General skin exam: no rashes or lesions noted and dry skin Neuro General: oriented to person, oriented to place and oriented to time Cranial nerves: Yes Equal, round and reactive pupils present Speech: No Abnormal speech present Gait exam (Neuro): Normal gait present Motor exam (neuro): no tremor noted Extrem Right upper extremity: full ROM Left upper extremity: full ROM Right lower extremity: full ROM; no edema Left lower extremity: full ROM; no edema Psych Mental Status: mental status grossly normal Speech and movement: Normal speech and movement present Affect: normal affect Attitude: cooperative Thought process: Normal thought process present Assessment and Plan Assessment & Plan (1) Hypercholesterolemia: Code(s): E78.00 - Pure hypercholesterolemia, unspecified Plan: Most recent lipid panel showing improved total cholesterol and LDL. He has been working on dietary modifications to reduce his cholesterol. goal LDL to be below 160 (2) HTN (hypertension): Code(s): I10 - Essential (primary) hypertension Qualifiers: Hypertension type: essential hypertension Qualified Code(s): I10 - Essential (primary) hypertension Plan: Patient's blood pressure is still slightly elevated today in office. We have increased his losartan dose which has been helpful lowering his blood pressure. Unfortunately has untreated obstructive sleep apnea and has not been able to tolerate CPAP mask. Will see if he is a candidate for the inspire device Goal blood pressure be below 140/90 (3) Polycythemia: Code(s): D75.1 - Secondary polycythemia Plan: Followed by Hematology.. As per HPI patient has chronic polycythemia likely due to untreated obstructive sleep apnea. Most recent hemoglobin within normal range.. (4) ZAHRAA (obstructive sleep apnea): Comment: THIS GENTLEMAN DOES HAVE OBSTRUCTIVE SLEEP APNEA, THOUGH IT IS MILD ACCORDING TO THE TOTAL SLEEP TIME AHI OF 6.5, AUTO PAP SETTING OF 6-16 CM, ALONG WITH USE OF HUMIDIFICATION. cannot tolerate the CPAP Code(s): G47.33 - Obstructive sleep apnea (adult) (pediatric) Plan: As above Orders: Orders Lipid Panel 6 Months E78.00 - Pure hypercholesterolemia, unspecified Microalbumin, Random (w Creat) 6 Months I10 - Essential (primary) hypertension Prostate Specific Antigen Scr 6 Months I10 - Essential (primary) hypertension, Z12.5 - Encounter for screening for malignant neoplasm of prostate Comprehensive [place]. Panel Fast 6 Months I10 - Essential (primary) hypertension Complete Blood Count no Diff 6 Months D75.1 - Secondary polycythemia Coding Level of Care Code Est Pt Level 4 (20832) Diagnoses Hypercholesterolemia E78.00 Essential hypertension I10 Hypertension type: essential hypertension Polycythemia D75.1 ZAHRAA (obstructive sleep apnea) G47.33
[2023-02-18 08:43] VITALS: BP 120/80; PULSE 88; O2SAT 97; BMI 27.5
== END 2023-02-18 09:12 | disposition home or self-care (01) ==
PROVIDERS: PCP Physician Assistant; Visit Provider Physician Assistant
DX: E78.00 Pure hypercholesterolemia, unspecified (principal); I10 Essential (primary) hypertension; D75.1 Secondary polycythemia; G47.33 Obstructive sleep apnea (adult) (pediatric)
CPT/HCPCS: 99214

== ENCOUNTER 2023-03-08 09:14 | Outpatient (REF) | payer OTHER, SELFPAY | END 2023-03-08 09:15 | disposition home or self-care (01) | LOC: HO.BBR 09:14 | PROVIDERS: PCP Physician Assistant; Visit Provider Internal Medicine Medical Oncology | DX: D75.1 Secondary polycythemia (principal) | CPT/HCPCS: 99195 ==

== ENCOUNTER 2023-04-08 08:50 | Outpatient (REF) | payer OTHER, SELFPAY | END 2023-04-08 08:51 | disposition home or self-care (01) | LOC: HO.BBR 08:50 | PROVIDERS: PCP Physician Assistant; Visit Provider Internal Medicine Medical Oncology | DX: D75.1 Secondary polycythemia (principal) | CPT/HCPCS: 85018; 99195 ==

== ENCOUNTER 2023-05-10 08:03 | Outpatient (REF) | payer OTHER, SELFPAY | END 2023-05-10 08:04 | disposition home or self-care (01) | LOC: HO.BBR 08:03 | PROVIDERS: PCP Physician Assistant; Visit Provider Internal Medicine Medical Oncology | DX: D75.1 Secondary polycythemia (principal) | CPT/HCPCS: 85018; 99195 ==

== ENCOUNTER 2023-06-14 08:01 | Outpatient (REF) | payer OTHER, SELFPAY | END 2023-06-14 08:02 | disposition home or self-care (01) | LOC: HO.BBR 08:01 | PROVIDERS: PCP Physician Assistant; Visit Provider Internal Medicine Medical Oncology | DX: D75.1 Secondary polycythemia (principal) | CPT/HCPCS: 85018; 99195 ==

== ENCOUNTER 2023-07-19 08:50 | Outpatient (REF) | payer OTHER, SELFPAY | END 2023-07-19 08:51 | disposition home or self-care (01) | LOC: HO.BBR 08:50 | PROVIDERS: PCP Physician Assistant; Visit Provider Internal Medicine Medical Oncology | DX: D75.1 Secondary polycythemia (principal) | CPT/HCPCS: 85014; 85018; 99195 ==

== ENCOUNTER 2023-08-02 07:56 | Outpatient (AMB) | payer OTHER, SELFPAY ==
--- NOTE | 2023-08-02 08:16 | A.OFFVIS_ITS ---
Intake Vital Signs 08/02/23 08:18 Height 6 ft 8 in Weight 250 lb BMI 27.5 BP 167/94 H Blood Pressure Location Lt brachial Position Sitting Pulse 97 Intake Visit Reasons: Colonoscopy Screening Intake Note: Patient new consult for 1st Pre colonoscopy screening. Patient denies any GI issues. Registered Nurse Cardiac Telemetry Required: No Accompanied by: Self / Same As Patient Allergies No Known Allergies Allergy (Verified 08/02/23 08:16) HPI Colonoscopy Screening HPI Details 52-year-old male here for preprocedural meeting to discuss a screening colonoscopy. He is referred by Bonifacio Mccarthy of [facility] primary care. PMX ZAHRAA Hypertension Borderline high cholesterol Congenital clubbing of fingernails Polycythemia Hyperbilirubinemia Seborrheic dermatitis Bladder outlet obstruction Nocturia Generalized anxiety disorder Erectile dysfunction * SURGICAL HISTORY Cervical discectomy Arthroscopic shoulder surgery right Vasectomy Cystic lesion removals Tonsillectomy * a ALLERGIES: NKDA * [employer] LABS: Laboratory Tests 06/10/23 09:39 WBC 5.1 Hgb 15.6 Hct 47.5 Plt Count 280 D Estimated GFR > 60 Total Bilirubin 1.3 H AST 18 ALT 25 Alkaline Phosphata se 70 TODAY'S VISIT THis is his first colonoscopy. No bowel or upper Gi problems. No anes or sed problems No card or resp. NO ID problems. His sister was just dxed with CRC stage III at age 44 so he is anxious to have the procedure. [facility] Medical History (Updated 08/02/23 @ 08:19 by TC Faulkner) Dissecting folliculitis of scalp Cervical spondylitis with radiculitis Chronic RUQ pain Erectile dysfunction HTN (hypertension) ZAHRAA (obstructive sleep apnea) Surgical History History of neck surgery History of shoulder surgery History of vasectomy History of excision of lesion Family History (Updated 08/02/23 @ 08:17 by Ivy Serrato) Father Medical history unknown Primary cancer of kidney Mother Hypertension Heart attack Paternal Uncle Brain cancer Brother Hypertension Sister Colon cancer Other Mental health disorder Social History Housing: House Alcohol intake: current Alcohol intake frequency: holidays/special occasions only Alcohol type: hard liquor Patient Tobacco Use Status: Never used Tobacco e-Cigarette/Vaping Use: Never Used Second Hand Smoke Exposure: No service: No Current occupational status: employed Current occupational exposures/hazards: No Cognitive needs: No Hearing needs: No Vision needs: No Review of Systems Const Denies fatigue, Denies fever(s), Denies night sweats, Denies poor appetite and Denies weight loss ENT Reports Normal hearing present, Denies dental pain, Denies dysphagia, Denies hearing loss, Denies mouth pain, Denies odynophagia, Denies throat swelling, Denies tongue swelling and Reports other (Dentition adequate) Card Reports no additional complaints Resp Reports no additional complaints GI Details: Denies abdominal pain, Denies melena, Denies bloating, Denies hematochezia, Denies constipation, Denies GI cramping, Denies dysphagia, Denies excessive flatus, Denies early satiety, Denies heartburn, Denies diarrhea, Denies nausea, Denies odynophagia, Denies vomiting and Denies hematemesis Skin/Breast Denies pruritus, Denies lesions, Denies rash and Denies jaundice Neuro Reports Normal hearing present and Denies Abnormal speech present Endo Denies fatigue Aller/Immun Denies throat swelling and Denies tongue swelling Physical Exam Vital Signs: Last Vital Signs Pulse 97 08/02/23 08:18 BP 167/94 H 08/02/23 08:18 BMI result Body Mass Index 27.5 Const General: cooperative, no acute distress, well developed and well groomed Nutritional Appearance: well nourished, obese and overweight Orientation/consciousness: oriented to person, oriented to place and oriented to time Limitations: No language barrier HEENT Other: Rhinophyma Head: Yes normocephalic and Yes atraumatic Eyes General: appearance normal, both eyes and all related structures Pupils: Equal, round and reactive pupils present Neck Neck: Yes normal visual inspection and Yes no lymphadenopathy Thyroid: Thyroid normal Resp Effort & Inspection: normal respiratory effort and able to speak in complete sentences Auscultation: clear to auscultation bilaterally Cardio Rate: regular rate Rhythm: regular rhythm Heart sounds: Normal, physiologic split S2 sound present Peripheral pulses: radial pulses present and posterior tibial pulses present GI Inspection: No distended, No Abdominal panniculus present and Yes obesity Palpation (GI): Soft to palpation, nontender, no guarding, not rigid and No hepatosplenomegaly present Percussion: Yes normal to percussion Auscultation: normal bowel sounds Rectal Exam - Male: Yes deferred Skin General skin exam: no rashes or lesions noted, turgor normal, skin not dry, no jaundice, No spider nevi and no striae Rashes: no rashes Nails: normal Neuro General: oriented to person, oriented to place and oriented to time Cranial nerves: Yes Equal, round and reactive pupils present and Yes Normal hearing present Speech: No Abnormal speech present Extrem General: Yes normal to inspection, No clubbing, No cyanosis and No edema Psych Appearance: grossly normal and well kempt Mental Status: mental status grossly normal Speech and movement: Normal speech and movement present Affect: normal affect Attitude: cooperative Thought process: Normal thought process present and not confabulating Thought content: Normal thought content present Insight: Fair insight present (Psych) Judgement: Fair judgement present (Psych) Assessment & Plan Assessment & Plan (1) Pre-op examination: Code(s): Z01.818 - Encounter for other preprocedural examination Plan THis is his first colonoscopy. No bowel or upper Gi problems. No anes or sed problems No card or resp. NO ID problems. His sister was just dxed with CRC stage III at age 44 so he is anxious to have the procedure. Orders: Orders Colonoscopy - GI Use Only Today Z01.818 - Encounter for other preprocedural examination Medications: New peg 3350-electrolytes 236-22.74-6.74 -5.86 gram (Golytely) until fecal effluent is clear; do not exceed a total volume of 2,000 mL 240 mL PO Q10M 1 day 4,000 mL 0RF Z12.11 - Encounter for screening for malignant neoplasm of colon bisacodyl (Dulcolax (bisacodyl)) 10 mg (2 x 5 mg) PO BEDTIME 2 days 4 tabs 0RF Coding Level of Care Code New Pt Level 3 (05048) Diagnoses Pre-op examination Z01.818
[2023-08-02 08:18] VITALS: BP 167/94; PULSE 97; BMI 27.5
== END 2023-08-02 08:39 | disposition home or self-care (01) ==
PROVIDERS: PCP Physician Assistant; Visit Provider Nurse Practitioner
DX: Z01.818 Encounter for other preprocedural examination (principal)
CPT/HCPCS: 99203

== ENCOUNTER → 2023-08-02 07:56 | Outpatient (BNVA) | payer OTHER, SELFPAY | PROVIDERS: PCP Physician Assistant; Visit Provider Nurse Practitioner | DX: Z01.818 Encounter for other preprocedural examination (principal); G89.29 Other chronic pain; R10.11 Right upper quadrant pain | CPT/HCPCS: 99202 ==

== ENCOUNTER 2023-08-15 09:08 | Outpatient (AMB) | payer OTHER, SELFPAY ==
--- NOTE | 2023-08-15 09:48 | A.OFFVIS_ITS ---
Intake Intake Visit Reasons: 6m follow up Intake Note: Patient presents today for a follow up on: Erectile Dysfunction Meds- Sildenafil, Tadalafil Allergies to Antibiotic- No Known Allergies Blood Thinner- None Tennis Court Attendant Required: No Accompanied by: Self / Same As Patient Allergies No Known Allergies Allergy (Verified 08/15/23 09:54) Medication List - Last Reconciled 08/15/23 by Elijah Chapman MD bisacodyl (Dulcolax (bisacodyl)) 10 mg (2 x 5 mg) PO BEDTIME 2 days doxycycline hyclate 100 mg PO BID omeprazole 20 mg PO DAILY 30 days peg 3350-electrolytes 236-22.74-6.74 -5.86 gram (Golytely) 240 mL PO Q10M 1 day sildenafil 100 mg PO DAILY PRN 30 days tadalafil 5 mg PO DAILY 90 days valsartan 160 mg PO DAILY 30 days HPI HPI Comments History of Present Illness Details [place] GALDAMEZ is a very pleasant male. He is a patient of Dr Mccarthy. He is seen for the following urologic conditions - erectile dysfunction - lower urinary tract symptoms Six-month follow-up Continued good effect from daily tadalafil for lower urinary tract symptoms. 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 [address] Lower urinary tract symptoms Progression of past 12 months Nocturia x2, urinary hesitancy No family history Current therapy daily tadalafil 5 mg Erectile dysfunction Switched to daily tadalafil 5 mg secondary to prostate issues Renewal provided Baseline testosterone 06/03 620, PSA 1.6, 03/03 1.4 Associated obstructive sleep apnea Also high cholesterol and blood pressure [facility] Medical History Dissecting folliculitis of scalp Cervical spondylitis with radiculitis Chronic RUQ pain Erectile dysfunction HTN (hypertension) ZAHRAA (obstructive sleep apnea) Surgical History History of neck surgery History of shoulder surgery History of vasectomy History of excision of lesion Family History Father Medical history unknown Primary cancer of kidney Mother Hypertension Heart attack Paternal Uncle Brain cancer Brother Hypertension Sister Colon cancer Other Mental health disorder Social History Housing: House Alcohol intake: current Alcohol intake frequency: holidays/special occasions only Alcohol type: hard liquor Patient Tobacco Use Status: Never used Tobacco e-Cigarette/Vaping Use: Never Used Second Hand Smoke Exposure: No service: No Current occupational status: employed Current occupational exposures/hazards: No Cognitive needs: No Hearing needs: No Vision needs: No Review of Systems Const Denies chills and Denies fever(s) Card Reports no additional complaints and Denies syncope Resp Denies cough GI Denies abdominal pain and Denies heartburn Reports as per HPI and Denies change in libido Neuro Denies syncope Psych Denies change in libido Endo Denies change in libido Physical Exam Const General: cooperative, healthy appearing, comfortable and no acute distress Orientation/consciousness: patient oriented x3 HEENT Face and sinus: Yes normal facial exam Mouth: moist mucous membranes Neck Neck: Yes normal visual inspection, Yes full ROM and Yes trachea midline Chest Chest palpation & inspection: normal inspection of the chest Resp Effort & Inspection: normal respiratory effort, able to speak in complete sentences and no respiratory distress GI Inspection: Yes normal to inspection Back/Spine/Pelvis Cervical Spine: normal cervical lordosis Thoracic/Lumbar Spine: thoracic and lumbar spine normal to inspection Skin General skin exam: no rashes or lesions noted Neuro General: patient oriented x3, gait normal, tone normal and moves all extremities Extrem General: Yes normal to inspection and Yes capillary refill normal Assessment & Plan Assessment & Plan (1) Nocturia more than twice per night: Code(s): R35.1 - Nocturia (2) Erectile dysfunction: Code(s): N52.9 - Male erectile dysfunction, unspecified Qualifiers: Erectile dysfunction type: vasculogenic Vasculogenic erectile dysfunction type: due to arterial insufficiency Qualified Code(s): N52.01 - Erectile dysfunction due to arterial insufficiency Plan Six-month follow-up Patient Instructions: Imaging studies, laboratory and physical exam results were discussed and reviewed in detail. No major barriers to patient understanding were identified. An opportunity to ask questions regarding the treatment plan was provided. All questions were answered. The patient expressed understanding and agreement with the above treatment plan. The patient is aware they should contact our office by phone for worsening of their current condition or the appearance of new urologic symptoms. Compliance is encouraged with any medications and followup testing that is ordered. It is a privilege to participate in the urologic care of your patient. If you have any questions or concerns regarding treatment for the above conditions, or other urologic issues, please do not hesitate to contact me. The office telephone contact is [phone]. This note is constructed using voice recognition software. While every effort has been made to ensure accuracy marine animal trainer errors may have been included. Yours sincerely, Dr Elijah Chapman MD, [facility] - Urology Providers of Expert, Compassionate Care for the Genitourinary System Coding Level of Care Code Est Pt Level 3 (25153) Diagnoses Nocturia more than twice per night R35.1 Erectile dysfunction due to arterial insufficiency N52.01 Erectile dysfunction type: vasculogenic Vasculogenic erectile dysfunction type: due to arterial insufficiency
== END 2023-08-15 10:39 | disposition home or self-care (01) ==
PROVIDERS: PCP Physician Assistant; Visit Provider Urology
DX: R35.1 Nocturia (principal); N52.01 Erectile dysfunction due to arterial insufficiency
CPT/HCPCS: 99213

== ENCOUNTER → 2023-08-15 09:08 | Outpatient (BNVA) | payer OTHER, SELFPAY | PROVIDERS: PCP Physician Assistant; Visit Provider Urology | DX: N52.01 Erectile dysfunction due to arterial insufficiency (principal); R35.1 Nocturia | CPT/HCPCS: 99212 ==

== ENCOUNTER 2023-09-02 08:12 | Outpatient (AMB) | payer OTHER, SELFPAY ==
[2023-09-02 08:20] VITALS: BP 138/76; PULSE 83; O2SAT 98; BMI 28.6
--- NOTE | 2023-09-02 08:20 | A.OFFPC_ITS ---
Vital Signs 09/02/23 08:20 Height 6 ft 8 in Weight 260 lb BMI 28.6 BP 138/76 Blood Pressure Location Lt brachial Position Sitting Pulse 83 Pulse Source Pulse Oximeter Pulse Oximetry (%) 98 Oxygen Delivery Method Room Air Intake Visit Reasons: pe Allergies No Known Allergies Allergy (Verified 09/02/23 08:31) Medication List - Last Reconciled 09/02/23 by Bonifacio Mccarthy PA-C bisacodyl (Dulcolax (bisacodyl)) 10 mg (2 x 5 mg) PO BEDTIME 2 days doxycycline hyclate 100 mg PO BID omeprazole 20 mg PO DAILY 30 days peg 3350-electrolytes 236-22.74-6.74 -5.86 gram (Golytely) 240 mL PO Q10M 1 day tadalafil 5 mg PO DAILY 90 days valsartan 160 mg PO DAILY 30 days Tobacco use date assessed: 09/02/23 Dental Screening Dental Screen Date: 09/02/23 Did you have a dental visit in the last 12 months?: Yes Did you have a dental problem in the last 6 months where you did not have access to dental care?: No Was dental information given to patient?: Patient has dentist HPI pe HPI Details Patient is a 52 year male here today for a a routine annual physical.? Patient has a past medical history significant for hyperlipidemia, obstructive sleep apnea, polycythemia, generalized anxiety disorder, hypertension and recurrent folliculitis. Concerns--> he reports he has been experiencing some shortness of breath and dizziness when exerting himself. He is concerned as he notes a family history of coronary artery disease. PLAN: In setting of his diagnoses hyperlipidemia, hypertension and polycythemia--> Will send for cardiac stress testing Having right mid foot pain on the top of his right foot. He denies any notable trauma to his right foot. He reports pain is only evident when he is physically active or standing for long periods of time. .. Hypertension:? Blood pressure today in office today acceptable..? Continues to be compliant with valsartan 160 mg.? He otherwise denies any vision issues, dizziness, headaches her chest discomforts.? He does report at home blood pressures have been better controlled 130s to 140 systolic. .. Hyperlipidemia: Most recent lipid panel showing improved total cholesterol and LDL. He has been making lifestyle modifications to reduce cholesterol. .. Folliculitis Scalp:? Patient has followed up with a stitching machine operator and will be on extended antibiotic treatment with doxycycline. He reports it has been helpful for him. .. Polycythemia: Noted elevated RBCs and hemoglobin, likely due to untreated obstructive sleep apnea. Is followed by Hematology. Has tried to treat his obstructive sleep apnea with CPAP machine though has been unable to tolerate this. .. Obstructive sleep apnea: Has been found to have severe obstructive sleep apnea though has been unable to tolerate CPAP mask and has luna CPAP treatment. Continues to have sequelae untreated obstructive sleep apnea on treated with elevated blood pressures, daytime somnolence, finger clubbing, polycythemia. He wonders if he is a candidate for inspire. Vaccines: Received 1 COVID vaccine, up-to-date with tetanus vaccine, considering pneumonia and shingles vaccines Colon cancer screening: Has upcoming appointment for colonoscopy Laboratory Tests 03/08/23 06/10/23 08:43 09:39 RBC 5.85 H 5.83 H BUN 23 H Creatinine 1.14 PFSH Medical History Dissecting folliculitis of scalp Cervical spondylitis with radiculitis Chronic RUQ pain Erectile dysfunction HTN (hypertension) ZAHRAA (obstructive sleep apnea) Surgical History History of neck surgery History of shoulder surgery History of vasectomy History of excision of lesion Family History (Updated 09/02/23 @ 08:36 by Bonifacio Mccarthy PA-C) Father Medical history unknown Primary cancer of kidney Mother Hypertension Heart attack CAD (coronary artery disease) Paternal Uncle Brain cancer Brother Hypertension Sister Colon cancer, Onset Age: 44 Other Mental health disorder Social History Housing: House Alcohol intake: current Alcohol intake frequency: holidays/special occasions only Alcohol type: hard liquor Patient Tobacco Use Status: Never used Tobacco e-Cigarette/Vaping Use: Never Used Second Hand Smoke Exposure: No service: No Current occupational status: employed Current occupational exposures/hazards: No Cognitive needs: No Hearing needs: No Vision needs: No Questionnaire PHQ-9 Over the last 2 weeks, how often have you been bothered by any of the following problems? 1. Little interest or pleasure in doing things: not at all 2. Feeling down, depressed, or hopeless: not at all 3. Trouble falling or staying asleep, or sleeping too much: not at all 4. Feeling tired or having little energy: not at all 5. Poor appetite or overeating: not at all 6. Feeling bad about yourself - or that you are a failure or have let yourself or your family down: not at all 7. Trouble concentrating on things, such as reading the newspaper or watching television: not at all 8. Moving or speaking so slowly that other people could have noticed. Or the opposite - being so fidgety or restless that you have been moving around a lot more than usual: not at all 9. Thoughts that you would be better off or of hurting yourself in some way: not at all Total score: 0 Depression Screening Interpretation: Negative Depression Screening Done: Yes 90725 - PHQ-9 Billing: Yes Source: Developed by Drs. Alin Glaser, Renita Camacho, Kevin Mendoza and colleagues, with an educational juan pablo from [employer]. Thrive Questionnaire Date Thrive assessed: 09/02/23 I am a: Patient What is your living situation today?: I have a steady place to live Within the past 12 months, did the food you bought not last and you didn't have the money to get more?: Never true Within the past 12 months, did you worry whether your food would run out before you got money to buy more?: Never true Do you have trouble paying for medicines?: No Do you have trouble getting transportation to medical appointments?: No Do you have trouble paying your heating and electricity bill?: No Do you have trouble taking care of your child, family member or friend?: No Do you have trouble with day-to-day activities such as bathing, preparing meals, shopping, managing finances, etc.?: No Are you currently unemployed and looking for a job?: No Are you interested in more education?: No Currently or been in a relationship where the following occur: no concerns reported THRIVE Score: 0 AUDIT C Alcohol Use Questionnaire (AUDIT-C) 1. How often do you have a drink containing alcohol?: Monthly or less 2. How many drinks containing alcohol do you have on a typical day when you are drinking?: 1 or 2 3. How often do you have six or more drinks on one occasion?: Never Total Score: 1 Score Reviewed/Action Taken: No HAL-7 AMB Questionnaire HAL-7 Date HAL - 7 assessed: 09/02/23 Feeling nervous, anxious, or on edge: 1 = Several days Not being able to stop or control worryin = Not at all Worrying too much about different things: 0 = Not at all Trouble relaxin = Not at all Being so restless that it is hard to sit still: 0 = Not at all Becoming easily annoyed or irritable: 0 = Not at all Feeling afraid as if something awful might happen: 0 = Not at all Total HAL-7 score (0-4 normal; 5-9 mild; 10-14 moderate; 15-21 severe): 1 Source: Developed by Drs. Alin Glaser, Renita Camacho, Kevin Mendoza and colleagues, with an educational juan pablo from [employer]. HAL-7 Assessment Billing HAL-7 Assessment Tool: HAL-7 Assessment 49635 Review of Systems Const Denies body aches, Denies chills, Denies excessive sweating, Denies fatigue, Denies fever(s) and Denies headache(s) Eyes Denies blurry vision ENT Denies dysphagia, Denies vertigo, Denies dizziness, Denies headache(s), Denies hearing loss and Denies tinnitus Card Denies chest pain, Denies chest pain with activity, Denies syncope, Denies irregular heart rhythm, Reports dyspnea and Reports dyspnea on exertion Resp Denies chest congestion, Denies cough, Denies hemoptysis, Reports dyspnea, Reports dyspnea on exertion and Denies wheezing GI Denies abdominal pain, Denies melena, Denies hematochezia, Denies coffee ground emesis, Denies dysphagia, Denies diarrhea, Denies nausea and Denies vomiting Denies difficulty urinating, Denies dysuria, Denies urinary frequency, Denies urinary hesitancy and Denies urinary urgency Musc Denies arthralgias, Denies limited range of motion, Denies muscle cramps and Denies muscle weakness Skin/Breast Denies rash and Denies skin ulcer Neuro Denies Abnormal speech present, Denies confusion, Denies vertigo, Denies dizziness, Denies syncope, Denies headache(s), Denies memory loss and Denies se izure-like activity Psych Denies anxiety, Denies confusion, Denies depression, Denies memory loss, Denies panic attacks and Denies paranoia Endo Denies excessive sweating, Denies fatigue, Denies flushing, Denies polydipsia and Denies polyuria Aller/Immun Denies wheezing Physical exam (Primary Care) Vital Signs: Last Vital Signs Pulse 83 09/02/23 08:20 BP 138/76 09/02/23 08:20 Pulse Ox 98 09/02/23 08:20 Oxygen Delivery Method Room Air 09/02/23 08:20 BMI result Body Mass Index 28.6 Tobacco/Smoking Status: Tobacco use Status Tobacco use date assessed 09/02/23 09/02/23 08:28 Patient Tobacco Use Status Never used Tobacco 09/02/23 08:28 e-Cigarette/Vaping Use Never Used 09/02/23 08:28 PHQ-9: PHQ-9 Score PHQ-9: Total score 0 09/02/23 08:44 Depression Screening Interpretation: Negative Thrive Assessment: Date of Thrive Assessment Date Thrive assessed 09/02/23 09/02/23 08:28 Currently or been in a relationship where the following occur: no concerns reported Const General: cooperative, comfortable, no acute distress, alert and awake; No confusion Orientation/consciousness: oriented to person, oriented to place, patient oriented x3 and No confusion HENMT Head: Yes normocephalic Ears: external ears normal and TM's normal bilaterally Face and sinus: No sinus tenderness Mouth: Normal oral and palatal mucosa present and tongue normal Teeth and gingiva: dentition normal and gingiva normal Throat: Yes posterior oropharynx normal, Yes tonsils normal and Yes uvula midline Eyes Conjunctivae: conjunctivae normal Sclerae: sclerae normal Pupils: Equal, round and reactive pupils present EOM: EOMs intact bilaterally Direct Ophthalmoscopy: No no photophobia Neck Neck: Yes no lymphadenopathy, No tender and Yes no JVD Thyroid: Thyroid normal Carotids: no bruits Chest Chest palpation & inspection: no tenderness Resp Effort & Inspection: normal respiratory effort, no audible wheezes, not labored and no stridor Auscultation: no crackles, no rales, no rhonchi and no wheezes Cardio Jugular venous distension: no JVD Rate: regular rate, not bradycardic and not tachycardic Rhythm: regular rhythm Bruits: no carotid bruits Peripheral pulses: Peripheral pulses 2+ throughout GI Inspection: Yes normal to inspection, No abdominal wall ecchymosis and No visible herniation Palpation (GI): Soft to palpation, nontender, no guarding, not rigid and No hepatosplenomegaly present Auscultation: normoactive bowel sounds General: Yes no CVA tenderness Back/Spine/Pelvis Back: no CVA tenderness and No back tenderness Cervical Spine: cervical ROM normal Thoracic/Lumbar Spine: thoracic and lumbar spine normal to inspection, straight leg raise negative bilaterally, No thoraco-lumbar ROM limited and No lumbar spinal tenderness Skin Lesions: no lesions Rashes: no rashes Wounds: no wounds Neuro General: oriented to person, oriented to place, patient oriented x3, CN's II-XI intact bilaterally and No confusion Cranial nerves: Yes Equal, round and reactive pupils present and Yes Normal accommodation reflex present Cognition (Neuro): normal cognition Speech: No Abnormal speech present Gait exam (Neuro): Normal gait present Motor exam (neuro): 5/5 motor strength present throughout Extrem Right upper extremity: full ROM; no cyanosis Left upper extremity: full ROM; no cyanosis Right lower extremity: no edema Left lower extremity: no edema Psych Appearance: grossly normal Mental Status: mental status grossly normal Affect: normal affect Attitude: cooperative Thought process: Normal thought process present Assessment and Plan Assessment & Plan (1) Annual physical exam: Code(s): Z00.00 - Encounter for general adult medical examination without abnormal findings (2) Hypercholesterolemia: Code(s): E78.00 - Pure hypercholesterolemia, unspecified Plan: Most recent lipid panel showing improved total cholesterol and LDL. He has been working on dietary modifications to reduce his cholesterol. goal LDL to be below 160 (3) HTN (hypertension): Code(s): I10 - Essential (primary) hypertension Qualifiers: Hypertension type: essential hypertension Qualified Code(s): I10 - Essential (primary) hypertension Plan: Patient's blood pressure is acceptable today in office. W Unfortunately has untreated obstructive sleep apnea and has not been able to tolerate CPAP mask. Will see if he is a candidate for the inspire device Goal blood pressure be below 140/90 (4) Polycythemia: Code(s): D75.1 - Secondary polycythemia Plan: Followed by Hematology.. As per HPI patient has chronic polycythemia likely due to untreated obstructive sleep apnea. Most recent hemoglobin within normal range.. (5) ZAHRAA (obstructive sleep apnea): Comment: THIS GENTLEMAN DOES HAVE OBSTRUCTIVE SLEEP APNEA, THOUGH IT IS MILD ACCORDING TO THE TOTAL SLEEP TIME AHI OF 6.5, AUTO PAP SETTING OF 6-16 CM, ALONG WITH USE OF HUMIDIFICATION. cannot tolerate the CPAP Code(s): G47.33 - Obstructive sleep apnea (adult) (pediatric) Plan: As above- not able to tolerate CPAP mask. He will follow-up with his food service order clerk about being a candidate for Inspire (6) SOB (shortness of breath): Code(s): R06.02 - Shortness of breath Plan: He does report having some shortness of breath and dizziness on exertion. He is concerned about coronary artery disease as his mother did have heart attack in her 60s. In setting of him having hypercholesteremia and high blood pressure will send for cardiac stress test to evaluate for cardiac ischemia on exertion. (7) Family history of coronary artery disease: Code(s): Z82.49 - Family history of ischemic heart disease and other diseases of the circulatory system Plan: As above (8) Foot pain, right: Code(s): M79.671 - Pain in right foot Plan: He reports mid top right foot pain over the last 2 months. He reports the pain is worse when working and doing physical activity. He denies any notable trauma to his right foot. He is interested in seeing a composite worker. Orders: Orders Comprehensive [place]. Panel Fast Today E78.9 - Disorder of lipoprotein metabolism, unspecified Lipid Panel Today E78.9 - Disorder of lipoprotein metabolism, unspecified CA stress test Today R06.02 - Shortness of breath Complete Blood Count no Diff Today D75.1 - Secondary polycythemia Microalbumin, Random (w Creat) Today I10 - Essential (primary) hypertension Referrals Podiatry Referral M79.671 - Pain in right foot Patient Instructions: Goals: Maintain blood pressure below 140/90 Barriers: Compliance to medication, control of his obstructive sleep apnea. Coding Level of Care Code Est Pt Prev Care 40-64y(22549) Diagnoses Annual physical exam Z00.00 Hypercholesterolemia E78.00 Essential hypertension I10 Hypertension type: essential hypertension Polycythemia D75.1 ZAHRAA (obstructive sleep apnea) G47.33 SOB (shortness of breath) R06.02 Family history of coronary artery disease Z82.49 Foot pain, right M79.671 Additional Codes HAL-7 Assessment Billing - HAL-7 Assessment Tool: HAL-7 Assessment [id number] ([id number])
== END 2023-09-02 08:54 | disposition home or self-care (01) ==
PROVIDERS: PCP Physician Assistant; Visit Provider Physician Assistant
DX: Z00.00 Encounter for general adult medical examination without abnormal findings (principal); E78.00 Pure hypercholesterolemia, unspecified; I10 Essential (primary) hypertension; D75.1 Secondary polycythemia; G47.33 Obstructive sleep apnea (adult) (pediatric); R06.02 Shortness of breath; Z82.49 Family history of ischemic heart disease and other diseases of the circulatory system; M79.671 Pain in right foot
CPT/HCPCS: 99396

== ENCOUNTER 2023-09-13 07:14 | Outpatient (REF) | payer OTHER, SELFPAY ==
[2023-09-13 09:13] LABS: Hematocrit 44.5 % (42.0-52.0); Mean Corpuscular HGB Conc 31.5 g/dl (31.0-36.0); Mean Corpuscular Hemoglobin 23.5 pg (27.0-33.0); Mean Corpuscular Volume 74.5 fL (80.0-98.0); Mean Platelet Volume 11.1 fL (9.4-12.4); Platelet Count 267 X10*3/uL (160-400); Red Blood Count 5.97 X10*6/uL (4.60-5.80); Red Cell Distribution Width 18.6 % (11.0-16.0); White Blood Count 5.1 X10*3/uL (4.8-10.8)
[2023-09-13 10:04] LABS: Alanine Aminotransferase 20 U/L (0-40); Alkaline Phosphatase 59 U/L (39-117); Anion Gap 13 (12-20); Aspartate Amino Transferase 20 U/L (5-37); Bilirubin Total 1.2 mg/dL (0.0-1.0); Blood Urea Nitrogen 16 mg/dL (9-16); Calcium 9.6 mg/dL (8.4-10.2); Carbon Dioxide 26 mmol/L (22-29); Chloride 104 mmol/L (96-108); Cholesterol 192 mg/dL (<200); Estimated Glomerular Filt Rate > 60; Glucose Fasting 92 mg/dL (60-99); HDL Cholesterol 36 mg/dL (>40); LDL Cholesterol Calculated 145 mg/dL (<100); Potassium 4.8 mmol/L (3.3-5.1); Sodium 138 mmol/L (135-145); Total Protein 7.5 g/dL (6.5-8.0); Triglycerides 56 mg/dL (<150)
== END 2023-09-13 07:15 | disposition home or self-care (01) ==
LOC: HO.LAB 07:14
PROVIDERS: PCP Physician Assistant; Visit Provider Physician Assistant
DX: I10 Essential (primary) hypertension (principal); D75.1 Secondary polycythemia; E78.9 Disorder of lipoprotein metabolism, unspecified; Z12.5 Encounter for screening for malignant neoplasm of prostate
CPT/HCPCS: 36415; 80053; 80061; 84153; 85027

== ENCOUNTER → 2023-09-20 09:02 | Outpatient (REF) | payer OTHER, SELFPAY ==
--- NOTE | 2023-09-20 09:04 | CA_ITS ---
Acquisition Time: 2023-09-20 09:18:44 Total Exercise Time: 00:09:59 Test Indications: SOB DIZZINESS Medications: SEE H Protocol: CHRISTA Max HR: 148 BPM 87% of Pred: 169 BPM Max BP: 180/084 mmHG Max Work Load: 11.7 METS Exercise stress test exercise 9 min 59 sec of Christa protocol achieving 87% MPHR, with moderate SOB, no chest discomfort, with isolated PACs and PVC, with resting HTN, appropriate response, without EKG changes. Breathing returned to baseline with rest. Test reviewed with Dr. Newman. Referred By: Bonifacio Mccarthy Overread By: Lisbeth Figueroa
== END ==
LOC: HO.CARD 09:02
PROVIDERS: PCP Physician Assistant; Visit Provider Physician Assistant
DX: R06.02 Shortness of breath (principal)
CPT/HCPCS: 93017

== ENCOUNTER → 2023-09-20 09:04 | Outpatient (BNV) | payer OTHER, SELFPAY | PROVIDERS: PCP Physician Assistant; Visit Provider Nurse Practitioner | DX: R06.02 Shortness of breath (principal); I49.1 Atrial premature depolarization; I49.3 Ventricular premature depolarization | CPT/HCPCS: 93016; 93018 ==

== ENCOUNTER 2023-11-21 07:25 | Day surgery (SDC) | payer OTHER, SELFPAY ==
[2023-11-19 14:58] VITALS: BMI 28.6
--- NOTE | 2023-11-20 08:41 | P.CONAN_ITS ---
Documented by User: Barbara Grider NP 11/20/23 08:47 HPI - Anesthesia Eval Consult details Narrative: 53yo M for Colonoscopy Polycythemia: Follow[place] [facility] [place]. Therapeutic phlebs, last 07/2023 Some SOB reported to PCP at 08/2023 PE, stress test 09/2023 WNL PMFSH Active Problems Active Problems: All Active Problems Foot pain, right (Acute) Annual physical exam (Acute) Family history of coronary artery disease (Acute) SOB (shortness of breath) (Acute) Pre-op examination (Acute) Colon cancer screening (Acute) Polycythemia (Acute) Nocturia more than twice per night (Acute) Urinary hesitancy (Acute) Bladder outlet obstruction (Acute) Right hand pain (Acute) Routine screening for STI (sexually transmitted infection) (Acute) Rash of penis (Acute) Seborrheic dermatitis (Acute) Gallbladder polyp (Acute) GERD (gastroesophageal reflux disease) (Acute) Epigastric pain (Acute) RUQ abdominal pain (Acute) Hyperbilirubinemia (Acute) Hypercholesterolemia (Acute) Folliculitis (Acute) Polycythemia (Acute) Tendinopathy of left shoulder (Acute) Borderline high cholesterol (Acute) HAL (generalized anxiety disorder) (Acute) Nocturnal hypoxemia (Acute) Exercise-induced shortness of breath (Acute) Clubbing of fingers (Acute) HTN (hypertension) (Acute) Erectile dysfunction (Acute) ZAHRAA (obstructive sleep apnea) (Acute) Past Medical History Medical History (Updated 11/19/23 @ 14:44 by Ethel Vance RN) Polycythemia Anxiety Dissecting folliculitis of scalp Chronic RUQ pain Erectile dysfunction HTN (hypertension) Cervical spondylitis with radiculitis ZAHRAA (obstructive sleep apnea) Family History Family History (Updated 09/02/23 @ 08:36 by Bonifacio Mccarthy PA-C) Father Medical history unknown Primary cancer of kidney Mother Hypertension Heart attack CAD (coronary artery disease) Paternal Uncle Brain cancer Brother Hypertension Sister Colon cancer, Onset Age: 44 Other Mental health disorder Surgical History Surgical History History of neck surgery History of shoulder surgery History of vasectomy History of excision of lesion Social History Social History Housing: House Alcohol intake: current Alcohol intake frequency: holidays/special occasions only Alcohol type: hard liquor Patient Tobacco Use Status: Never used Tobacco e-Cigarette/Vaping Use: Never Used Second Hand Smoke Exposure: No Use of substances other than those prescribed or required for medical reasons: No Are you DNR?: No Advance Directives: No Advance Directives Information Provided: Yes service: No Current occupational status: employed Current occupational exposures/hazards: No Cognitive needs: No Hearing needs: No Vision needs: No Meds Allergies Allergy/AdvReac Type Severity Reaction Status Date / Time No Known Allergies Allergy Verified 09/13/23 09:20 Home Medications ?Medication ?Instructions ?Recorded ?Confirmed ?Last Taken ?Type doxycycline hyclate 100 mg tablet 100 mg PO BID 10/18/22 11/19/23 Unknown History Exam Height,Weight and Vital Signs: Height 6 ft 8 in Weight 117.934 kg Pertinent Lab Results Pertinent Lab Results: Laboratory Tests 09/13/23 07:24 WBC 5.1 Hgb 14.0 Hct 44.5 Plt Count 267 Sodium 138 Potassium 4.8 Chloride 104 Carbon Dioxide 26 BUN 16 Creatinine 1.12 Narrative Narrative: Exercise Stress 09/2023 Protocol: ALBERTO Max HR: 148 BPM 87% of Pred: 169 BPM Max BP: 180/084 mmHG Max Work Load: 11.7 METS Exercise stress test exercise 9 min 59 sec of Alberto protocol achieving 87% MPHR, with moderate SOB, no chest discomfort, with isolated PACs and PVC, with resting HTN, appropriate response, without EKG changes. Breathing returned to baseline with rest. Test reviewed with Dr. Newman. Assessment and Plan Assessment Anesthesia Assessment: Chart Reviewed Documented by User: Seble Meade MD 11/21/23 08:08 [facility] Past Medical History Medical History (Updated 11/19/23 @ 14:44 by Ethel Vance RN) Polycythemia Anxiety Dissecting folliculitis of scalp Chronic RUQ pain Erectile dysfunction HTN (hypertension) Cervical spondylitis with radiculitis ZAHRAA (obstructive sleep apnea) Family History Family History (Updated 09/02/23 @ 08:36 by Bonifacio Mccarthy PA-C) Father Medical history unknown Primary cancer of kidney Mother Hypertension Heart attack CAD (coronary artery disease) Paternal Uncle Brain cancer Brother Hypertension Sister Colon cancer, Onset Age: 44 Other Mental health disorder Family history of problems with anesthesia: No Surgical History Surgical History History of neck surgery History of shoulder surgery History of vasectomy History of excision of lesion History of Problems with Anesthesia: No Social History Social History Housing: House Alcohol intake: current Alcohol intake frequency: holidays/special occasions only Alcohol type: hard liquor Patient Tobacco Use Status: Never used Tobacco e-Cigarette/Vaping Use: Never Used Second Hand Smoke Exposure: No Use of substances other than those prescribed or required for medical reasons: No Are you DNR?: No Advance Directives: No Advance Directives Information Provided: Yes service: No Current occupational status: employed Current occupational exposures/hazards: No Cognitive needs: No Hearing needs: No Vision needs: No Meds Allergies Allergy/AdvReac Type Severity Reaction Status Date / Time No Known Allergies Allergy Verified 09/13/23 09:20 Home Medications ?Medication ?Instructions ?Recorded ?Confirmed ?Last Taken ?Type doxycycline hyclate 100 mg tablet 100 mg PO BID 10/18/22 11/19/23 Unknown History Exam Airway Mallampati Class: II TM Dist: >3cm Neck ROM: Full Assessment and Plan Assessment Anesthesia Assessment: Anesthesia Plan Discussed Final Anesthetic Review Family History of Problems with Anesthesia: No History of Problems with Anesthesia: No NPO: Yes ASA Class: III Final Preanesthetic Review: No Changes in Pt Med Stat, Meds/Allgs Chart Reviewed, Consent Obtained/Reviewed and Anes Risks/Benef Reviewed Patient Risk: Intermediate Procedure Risk: Low Anesthetic Plan Anesthetic Plan: TIVA Disposition: Standard PACU
[2023-11-21 07:54] VITALS: BP 121/85; PULSE 100; RESP 16; TEMP 36.4; O2SAT 98; BMI 27.4
[2023-11-21] MEDS: Lactated Ringers 1,000 ML 100 ML IVCONT (08:04)
--- NOTE | 2023-11-21 08:22 | MHC.SHP ---
Pre-Procedural Eval Section A - 24 Hr Update-Section A only Date of Service: 11/21/23 Section B - Complete if H&P > 30 days Chief Complaint: Family history of malignant neoplasm of digestive Details of Present Illness: sister with CRC aged 44 Relevant Family History (Specify if Yes): Yes Relevant Social History: None Present Medications: see Short Stay Collaborative assessment Medical History: Significant History ( Hypertension Borderline high cholesterol Congenital clubbing of fingernails Polycythemia Hyperbilirubinemia Seborrheic dermatitis Bladder outlet obstruction Nocturia Generalized anxiety disorder Erectile dysfunction ) History of Previous Operations: Relevant previous surgery/procedure and date(s) (Cervical discectomy Arthroscopic shoulder surgery right Vasectomy Cystic lesion removals Tonsillectomy) Allergies: Allergies Allergy/AdvReac Type Severity Reaction Status Date / Time No Known Allergies Allergy Verified 09/13/23 09:20 Review of Systems Sugical H&P ROS: Negative: Constitution, Cardiovascular, Respiratory, Neurological, Psychiatric, Hem-Onc, Allergic/Immunologic, Gastrointestinal, Genitourinary, Musculoskeletal, Integumentary, Endocrine and Eyes/Ears/Nose/Throat Exam Surgical H&P Exam: Normal: HEENT, Normal: Heart, Normal: Lungs, Normal: Extremities, Normal: Abdomen, Normal: Skin and Normal: Neurological Plan Diagnosis/Plan: Unchanged I have reviewed the history and physical and performed a pertinent physical examination on my patient. No changes have occurred unless specified. Time Spent With Patient Time: Total time managing care of this patient today ____ minutes.
--- NOTE | 2023-11-21 09:17 | W.PM.OPN ---
Operative Note Operative Note Date of Service: 11/21/23 Narrative: Operative Information Procedure Description: Colonoscopy Indication: FH of CRC, screening Anesthesia: MAC COLONOSCOPY Instrument: Olympus variable stiffness pediatric scope 190L Colonoscopy Monitoring: Vital signs and clinical assessment, continuous EKG monitoring, Pulse oximetry, Carbon Dioxide monitoring and blood pressure monitoring were done throughout the procedure. Colon withdrawal time was 10 minutes. Procedure: The patient was placed in the left lateral decubitis position and pre-procedure medications were administered. After a digital rectal examination of the ano-rectum, the video colonoscope was inserted into the rectum and advanced through the colon to the cecum/TI. The colonoscope was slowly withdrawn in a retrograde panoramic fashion and the colon mucosa was carefully examined including a retroflexed view of the rectum. Findings and interventions are described below. Procedure Difficulty: easy Findings: Terminal Ileum-normal Cecum:normal Ascending Colon: normal Transverse Colon -normal Descending Colon:normal Sigmoid Colon: mild diverticulosis Rectum: Retroflexion with small to medium internal hemorrhoids seen, grade I Anorectum - normal Intervention: none Colon preparation: [place] Bowel Preparation Scale Right colon; 2 Transverse colon: 2 Left colon; 2 (0 = Unprepared colon segment with mucosa not seen due to solid stool that cannot be cleared. 1 = Portion of mucosa of the colon segment seen, but other areas of the colon segment not well seen due to staining, residual stool and/or opaque liquid. 2 = Minor amount of residual staining, small fragments of stool and/or opaque liquid, but mucosa of colon segment seen well. 3 = Entire mucosa of colon segment seen well with no residual staining, small fragments of stool or opaque liquid) Impression and Post Procedure Diagnosis: diverticulosis internal hemorrhoids Plan: High fiber diet leaflet Avoid straining at stool, epsom salts and sitz bath, anusol supps or cream Repeat Colonoscopy in 5 years due to FH of CRC or earlier if clinically indicated Above findings were reviewed with the patient and relevant handouts were provided if indicated.
[2023-11-21 09:21] VITALS: BP 108/73; PULSE 86; RESP 16; TEMP 36.5; O2SAT 96
[2023-11-21 09:36] VITALS: BP 117/78; PULSE 87; RESP 18; TEMP 36.7; O2SAT 96
== END 2023-11-21 10:09 | disposition home or self-care (01) ==
PROVIDERS: PCP Physician Assistant; Visit Provider Internal Medicine Gastroenterology
PROC: 0DJD8ZZ Inspection of Lower Intestinal Tract, Via Natural or Artificial Opening Endoscopic (ICD-10-PCS; CPT 45378; principal; 2023-11-21 09:00)
DX: Z12.11 Encounter for screening for malignant neoplasm of colon (principal); K57.30 Diverticulosis of large intestine without perforation or abscess without bleeding; K64.0 First degree hemorrhoids; Z80.0 Family history of malignant neoplasm of digestive organs; G47.33 Obstructive sleep apnea (adult) (pediatric); I10 Essential (primary) hypertension; Z79.899 Other long term (current) drug therapy
CPT/HCPCS: 45378; J2704

== ENCOUNTER → 2023-11-21 07:25 | Outpatient (BNV) | payer OTHER, SELFPAY | PROVIDERS: PCP Physician Assistant; Visit Provider Internal Medicine Gastroenterology | DX: Z12.11 Encounter for screening for malignant neoplasm of colon (principal); Z80.0 Family history of malignant neoplasm of digestive organs; K57.30 Diverticulosis of large intestine without perforation or abscess without bleeding; K64.0 First degree hemorrhoids | CPT/HCPCS: 45378 ==

== ENCOUNTER 2024-02-14 08:44 | Outpatient (AMB) | payer OTHER, SELFPAY ==
--- NOTE | 2024-02-14 08:45 | MHC.OFFVIS ---
Intake Visit Reasons: 6m follow up Intake Note: Patient is Present for Telephone Follow Up Erectile Dys Urology Med: Tadalafil Antibiotic Allergy: None Blood Thinner: None Recent PSA: 09/13/23 PSA 1.10 [employer] Specialist Required: No Accompanied by: Self / Same As Patient Allergies No Known Allergies Allergy (Verified 02/14/24 08:46) HPI Comments Details: London GALDAMEZ is a very pleasant male. He is a patient of Dr Mccarthy. He is seen for the following urologic conditions - erectile dysfunction - lower urinary tract symptoms Telemedicine Evaluation 15 min Consultation [employer] [place] Video Six-month follow-up Continued good effect from daily tadalafil for lower urinary tract symptoms. 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 [employer] Lower urinary tract symptoms Progression of past 12 months Nocturia x2, urinary hesitancy No family history Current therapy daily tadalafil 5 mg Erectile dysfunction Switched to daily tadalafil 5 mg secondary to prostate issues Renewal provided Baseline testosterone 06/03 620, PSA 1.6, 03/03 1.4 Associated obstructive sleep apnea Also high cholesterol and blood pressure [facility] Medical History Polycythemia Anxiety Dissecting folliculitis of scalp Chronic RUQ pain Erectile dysfunction HTN (hypertension) Cervical spondylitis with radiculitis ZAHRAA (obstructive sleep apnea) Surgical History History of neck surgery History of shoulder surgery History of vasectomy History of excision of lesion Family History Father Medical history unknown Primary cancer of kidney Mother Hypertension Heart attack CAD (coronary artery disease) Paternal Uncle Brain cancer Brother Hypertension Sister Colon cancer, Onset Age: 44 Other Mental health disorder Social History Housing: House Alcohol intake: current Alcohol intake frequency: holidays/special occasions only Alcohol type: hard liquor Patient Tobacco Use Status: Never used Tobacco e-Cigarette/Vaping Use: Never Used Second Hand Smoke Exposure: No service: No Current occupational status: employed Current occupational exposures/hazards: No Cognitive needs: No Hearing needs: No Vision needs: No Review of Systems Const All systems reviewed & are unremarkable except as noted in HPI and below Reports no additional complaints Resp Reports no additional complaints GI Reports no additional complaints Reports as per HPI Musc Reports no additional complaints Physical Exam Telemedicine evaluation Appropriate responses Regular breathing rate and rhythm HEENT Head: Yes normal to inspection Ears: hearing grossly normal bilaterally Eyes General: appearance normal, both eyes and all related structures Neck Neck: Yes normal visual inspection Chest Chest palpation & inspection: normal inspection of the chest Resp Effort & Inspection: normal respiratory effort and able to speak in complete sentences Telehealth Telehealth Location of provider rendering services: practice address Location of patient: address on file Patient Identification confirmed using: Name, : Yes Telehealth method: video Patient verbally consented to treatment: Yes Patient verbally consented to billing insurance company: Yes Patient informed of any privacy concerns related to visit: Yes Assessment & Plan Assessment & Plan (1) Bladder outlet obstruction: Code(s): N32.0 - Bladder-neck obstruction Category: Medical (2) Erectile dysfunction: Code(s): N52.9 - Male erectile dysfunction, unspecified Category: Medical Qualifiers: Erectile dysfunction type: vasculogenic Vasculogenic erectile dysfunction type: due to arterial insufficiency Qualified Code(s): N52.01 - Erectile dysfunction due to arterial insufficiency Plan Six-month follow-up PSA office Orders: Orders Prostate Specific Antigen 6 Months N32.0 - Bladder-neck obstruction Medications: New sildenafil administer 60 minutes before intended activity 100 mg PO ONCE 30 days PRN 30 tabs 1RF sexual activity N52.01 - Erectile dysfunction due to arterial insufficiency, N52.9 - Male erectile dysfunction, unspecified Refilled tadalafil Daily for prostate 5 mg PO DAILY 90 days 90 tabs 1RF N52.9 - Male erectile dysfunction, unspecified, R39.11 - Hesitancy of micturition Patient Instructions: Imaging studies, laboratory and physical exam results were discussed and reviewed in detail. No major barriers to patient understanding were identified. An opportunity to ask questions regarding the treatment plan was provided. All questions were answered. The patient expressed understanding and agreement with the above treatment plan. The patient is aware they should contact our office by phone for worsening of their current condition or the appearance of new urologic symptoms. Compliance is encouraged with any medications and followup testing that is ordered. It is a privilege to participate in the urologic care of your patient. If you have any questions or concerns regarding treatment for the above conditions, or other urologic issues, please do not hesitate to contact me. The office telephone contact is [phone]. This note is constructed using voice recognition software. While every effort has been made to ensure accuracy disease case manager errors may have been included. Yours sincerely, Dr Elijah Chapman MD, [facility] - Urology Providers of Expert, Compassionate Care for the Genitourinary System Coding Level of Care Code Tele Est Pt Level 3 (54306) Diagnoses Bladder outlet obstruction N32.0 Erectile dysfunction due to arterial insufficiency N52.01 Erectile dysfunction type: vasculogenic Vasculogenic erectile dysfunction type: due to arterial insufficiency
== END 2024-02-14 09:18 | disposition home or self-care (01) ==
LOC: HO.HUSH 08:44
PROVIDERS: PCP Physician Assistant; Visit Provider Urology
DX: N32.0 Bladder-neck obstruction (principal); N52.01 Erectile dysfunction due to arterial insufficiency
CPT/HCPCS: 99213

== ENCOUNTER → 2024-02-14 08:44 | Outpatient (BNVA) | payer OTHER, SELFPAY | PROVIDERS: PCP Physician Assistant; Visit Provider Urology ==

== ENCOUNTER 2024-03-05 08:24 | Outpatient (AMB) | payer OTHER, SELFPAY ==
[2024-03-05 08:33] VITALS: BP 136/82; PULSE 84; O2SAT 97; BMI 28.5
--- NOTE | 2024-03-05 08:33 | MHC.PC.OV ---
Vital Signs 03/05/24 08:33 Height 6 ft 8 in Weight 259 lb 6 oz BMI 28.5 BP 136/82 Blood Pressure Location Lt brachial Position Sitting Pulse 84 Pulse Source Pulse Oximeter Pulse Oximetry (%) 97 Oxygen Delivery Method Room Air Intake Visit Reasons: 6mof\u An/Ssn 2 4 Operator Required: No Accompanied by: Self / Same As Patient Allergies No Known Allergies Allergy (Verified 03/05/24 08:40) Medication List - Last Reconciled 03/05/24 by Bonifacio Mccarthy PA-C bisacodyl (Dulcolax (bisacodyl)) 10 mg (2 x 5 mg) PO BEDTIME 2 days doxycycline hyclate 100 mg PO BID omeprazole 20 mg PO DAILY 30 days peg 3350-electrolytes 236-22.74-6.74 -5.86 gram (Golytely) 240 mL PO Q10M 1 day sildenafil 100 mg PO ONCE PRN 30 days tadalafil 5 mg PO DAILY 90 days valsartan 160 mg PO DAILY 30 days Tobacco use date assessed: 03/05/24 Dental Screening Dental Screen Date: 03/05/24 Did you have a dental visit in the last 12 months?: No Did you have a dental problem in the last 6 months where you did not have access to dental care?: No Was dental information given to patient?: Patient has dentist HPI 6mof\u HPI Details Patient is a 53 year male here today for a follow-up visit. Patient has a past medical history significant for hyperlipidemia, obstructive sleep apnea, polycythemia, generalized anxiety disorder, hypertension and recurrent folliculitis. .. Hypertension:? Blood pressure today in office today acceptable..? Continues to be compliant with valsartan 160 mg.? He otherwise denies any vision issues, dizziness, headaches her chest discomforts.? He does report at home blood pressures have been better controlled 130s to 140 systolic. .. Hyperlipidemia: Most recent lipid panel showing improved total cholesterol and LDL. He has been making lifestyle modifications to reduce cholesterol. .. Folliculitis Scalp:? Patient has followed up with a dietitian teacher and will be on extended antibiotic treatment with doxycycline. He reports it has been helpful for him. He still does have breakouts along his face and nevarez. He is concerned about taking antibiotics senior care and is interested in a 2nd opinion from a dietitian teacher for evaluation .. Polycythemia: Noted elevated RBCs and hemoglobin, likely due to untreated obstructive sleep apnea. Is followed by Hematology. Has tried to treat his obstructive sleep apnea with CPAP machine though has been unable to tolerate this. .. Obstructive sleep apnea: Has been found to have severe obstructive sleep apnea though has been unable to tolerate CPAP mask and has luna CPAP treatment. Continues to have sequelae untreated obstructive sleep apnea on treated with elevated blood pressures, daytime somnolence, finger clubbing, polycythemia. He wonders if he is a candidate for [facility] Medical History Polycythemia Anxiety Dissecting folliculitis of scalp Chronic RUQ pain Erectile dysfunction HTN (hypertension) Cervical spondylitis with radiculitis ZAHRAA (obstructive sleep apnea) Surgical History History of neck surgery History of shoulder surgery History of vasectomy History of excision of lesion Family History Father Medical history unknown Primary cancer of kidney Mother Hypertension Heart attack CAD (coronary artery disease) Paternal Uncle Brain cancer Brother Hypertension Sister Colon cancer, Onset Age: 44 Other Mental health disorder Social History Housing: House Alcohol intake: current Alcohol intake frequency: holidays/special occasions only Alcohol type: hard liquor Patient Tobacco Use Status: Never used Tobacco e-Cigarette/Vaping Use: Never Used Second Hand Smoke Exposure: No service: No Current occupational status: employed Current occupational exposures/hazards: No Cognitive needs: No Hearing needs: No Vision needs: No Questionnaire PHQ-9 Over the last 2 weeks, how often have you been bothered by any of the following problems? 1. Little interest or pleasure in doing things: not at all 2. Feeling down, depressed, or hopeless: not at all 3. Trouble falling or staying asleep, or sleeping too much: not at all 4. Feeling tired or having little energy: not at all 5. Poor appetite or overeating: not at all 6. Feeling bad about yourself - or that you are a failure or have let yourself or your family down: not at all 7. Trouble concentrating on things, such as reading the newspaper or watching television: not at all 8. Moving or speaking so slowly that other people could have noticed. Or the opposite - being so fidgety or restless that you have been moving around a lot more than usual: not at all 9. Thoughts that you would be better off or of hurting yourself in some way: not at all Total score: 0 Depression Screening Interpretation: Negative Depression Screening Done: Yes 96584 - PHQ-9 Billing: Yes Source: Developed by Drs. Alin Glaser, Renita Camacho, Kevin Mendoza and colleagues, with an educational juan pablo from [employer]. Thrive Questionnaire Date Thrive assessed: 03/05/24 I am a: Patient What is your living situation today?: I have a steady place to live Within the past 12 months, did the food you bought not last and you didn't have the money to get more?: Never true Within the past 12 months, did you worry whether your food would run out before you got money to buy more?: Never true Do you have trouble paying for medicines?: No Do you have trouble getting transportation to medical appointments?: No Do you have trouble paying your heating and electricity bill?: No Do you have trouble taking care of your child, family member or friend?: No Do you have trouble with day-to-day activities such as bathing, preparing meals, shopping, managing finances, etc.?: No Are you currently unemployed and looking for a job?: No Are you interested in more education?: No Please select the resources that you would like help with: None Currently or been in a relationship where the following occur: No concerns reported THRIVE Score: 0 AUDIT C Alcohol Use Questionnaire (AUDIT-C) 1. How often do you have a drink containing alcohol?: Monthly or less 2. How many drinks containing alcohol do you have on a typical day when you are drinking?: 1 or 2 3. How often do you have six or more drinks on one occasion?: Never Total Score: 1 Score Reviewed/Action Taken: No HAL-7 AMB Questionnaire HAL-7 Date HAL - 7 assessed: 03/05/24 Feeling nervous, anxious, or on edge: 1 = Several days Not being able to stop or control worryin = Not at all Worrying too much about different things: 0 = Not at all Trouble relaxin = Not at all Being so restless that it is hard to sit still: 0 = Not at all Becoming easily annoyed or irritable: 0 = Not at all Feeling afraid as if something awful might happen: 0 = Not at all Total AHL-7 score (0-4 normal; 5-9 mild; 10-14 moderate; 15-21 severe): 1 Source: Developed by Drs. Alin Glaser, Renita Camacho, Kevin Mendoza and colleagues, with an educational juan pablo from [employer]. HAL-7 Assessment Billing HAL-7 Assessment Tool: HAL-7 Assessment 46233 Review of Systems Const Denies headache(s) Eyes Denies loss of vision ENT Denies vertigo, Denies dizziness, Denies headache(s) and Denies sore throat Card Denies chest pain, Denies leg edema and Denies lightheadedness Resp Denies cough, Denies hemoptysis and Denies wheezing GI Denies abdominal pain, Denies melena, Denies constipation, Denies diarrhea and Denies vomiting Denies dysuria, Denies urinary frequency and Denies urinary urgency Musc Denies arthralgias, Denies joint swelling, Denies numbness and Denies tingling Neuro Denies Abnormal speech present, Denies behavioral changes, Denies vertigo, Denies dizziness, Denies headache(s), Denies loss of vision, Denies memory loss, Denies numbness and Denies tingling Psych Denies anxiety, Denies behavioral changes, Denies depression, Denies memory loss and Denies panic attacks Kurtis/Lymph Denies easy bleeding and Denies easy bruising Aller/Immun Denies wheezing Physical exam (Primary Care) Vital Signs: Last Vital Signs Pulse 84 03/05/24 08:33 BP 136/82 03/05/24 08:33 Pulse Ox 97 03/05/24 08:33 Oxygen Delivery Method Room Air 03/05/24 08:33 BMI result Body Mass Index 28.5 Tobacco/Smoking Status: Tobacco use Status Tobacco use date assessed 03/05/24 03/05/24 08:39 Patient Tobacco Use Status Never used Tobacco 03/05/24 08:39 e-Cigarette/Vaping Use Never Used 03/05/24 08:39 PHQ-9: PHQ-9 Score PHQ-9: Total score 0 03/05/24 08:42 Depression Screening Interpretation: Negative Thrive Assessment: Date of Thrive Assessment Date Thrive assessed 03/05/24 03/05/24 08:39 Currently or been in a relationship where the following occur: No concerns reported Const General: healthy appearing, no acute distress, alert and awake Nutritional Appearance: well nourished Orientation/consciousness: oriented to person, oriented to place and oriented to time HENMT Ears: TM's normal bilaterally General nose exam: Normal nasal mucous membranes and turbinates present Eyes Conjunctivae: conjunctivae normal Sclerae: sclerae normal Pupils: Equal, round and reactive pupils present Neck Neck: Yes no lymphadenopathy and Yes no JVD Thyroid: Thyroid normal Carotids: no bruits Resp Effort & Inspection: normal respiratory effort and not tachypneic Auscultation: no crackles, no rales, no rhonchi and no wheezes Cardio Rate: regular rate Rhythm: regular rhythm Heart sounds: no murmurs and normal S1 and S2 GI Palpation (GI): Soft to palpation, nontender, no hepatomegaly and no splenomegaly Auscultation: normal bowel sounds Skin General skin exam: no rashes or lesions noted and dry skin Neuro General: oriented to person, oriented to place and oriented to time Cranial nerves: Yes Equal, round and reactive pupils present Speech: No Abnormal speech present Gait exam (Neuro): Normal gait present Motor exam (neuro): no tremor noted Extrem Right upper extremity: full ROM Left upper extremity: full ROM Right lower extremity: full ROM; no edema Left lower extremity: full ROM; no edema Psych Mental Status: mental status grossly normal Speech and movement: Normal speech and movement present Affect: normal affect Attitude: cooperative Thought process: Normal thought process present Office Procedures Flu Questionnaire Does the patient have a severe egg allergy?: No Immunizations Fluarix Triv [id number] (PF) 45 mcg (15 mcg x 3)/0.5 mL IM syringe Performing Provider: Bonifacio Mccarthy PA-C [facility] Documented (not given) by: YANIRA Mendoza on 03/05/24 08:40 Reason Not Given: Patient Refused Coding Level of Care Code Est Pt Level 4 (01154) Diagnoses Essential hypertension I10 Hypertension type: essential hypertension Folliculitis L73.9 Hypercholesterolemia E78.00 ZAHRAA (obstructive sleep apnea) G47.33 Herpes simplex B00.9 Additional Codes AHL-7 Assessment Billing - HAL-7 Assessment Tool: HAL-7 Assessment 44931 ([id number]) Assessment & Plan Assessment & Plan (1) HTN (hypertension): Code(s): I10 - Essential (primary) hypertension Category: Medical Qualifiers: Hypertension type: essential hypertension Qualified Code(s): I10 - Essential (primary) hypertension Plan: Patient's blood pressure acceptable today in office. Will continue on current dose of valsartan with goal blood pressure to be below 140/90 (2) Folliculitis: Code(s): L73.9 - Follicular disorder, unspecified Category: Medical Plan: As per HPI patient continues to have folliculitis flares from time to time over his scalp. He has stopped wearing a hat much at work. He continues with the use of doxycycline which has helped reduce his skin manifestations. He is interested in a 2nd opinion from dermatology has he is concerned about long-term antibiotic use. (3) Hypercholesterolemia: Code(s): E78.00 - Pure hypercholesterolemia, unspecified Category: Medical Plan: Patient's most recent lipid panel showing good control of his total cholesterol and LDL. He will continue working on dietary modifications to reduce his high cholesterol. (4) ZAHRAA (obstructive sleep apnea): Comment: THIS GENTLEMAN DOES HAVE OBSTRUCTIVE SLEEP APNEA, THOUGH IT IS MILD ACCORDING TO THE TOTAL SLEEP TIME AHI OF 6.5, AUTO PAP SETTING OF 6-16 CM, ALONG WITH USE OF HUMIDIFICATION. cannot tolerate the CPAP Code(s): G47.33 - Obstructive sleep apnea (adult) (pediatric) Category: Medical Plan: Patient does have pretty severe obstructive sleep apnea. Followed by pulmonology. He has not been able to tolerate CPAP machine. He is wondering about the Enspire device (5) Herpes simplex: Code(s): B00.9 - Herpesviral infection, unspecified Category: Medical Plan: Patient does get outbreaks during the winter of herpes simplex 1. Will supply patient with Valtrex to use on a limited basis for outbreaks. Orders: Orders Prostate Specific Antigen Scr Today I10 - Essential (primary) hypertension, Z12.5 - Encounter for screening for malignant neoplasm of prostate Complete Blood Count no Diff Today I10 - Essential (primary) hypertension Lipid Panel Today E78.9 - Disorder of lipoprotein metabolism, unspecified Influenza [id number] Immunization Today Z23 - Encounter for immunization Microalbumin, Random (w Creat) Today I10 - Essential (primary) hypertension Comprehensive [place]. Panel Fast Today I10 - Essential (primary) hypertension Referrals Dermatology Referral L73.9 - Follicular disorder, unspecified Medications: New valacyclovir (Valtrex) 1,000 mg PO BID PRN 14 tabs 0RF outbreak 7 days B00.9 - Herpesviral infection, unspecified Patient Instructions: Goal: Blood pressure to remain below 140/90 Barriers: Adherence to physical activity and healthy eating habits
== END 2024-03-05 09:02 | disposition home or self-care (01) ==
PROVIDERS: PCP Physician Assistant; Visit Provider Physician Assistant
DX: I10 Essential (primary) hypertension (principal); L73.9 Follicular disorder, unspecified; E78.00 Pure hypercholesterolemia, unspecified; G47.33 Obstructive sleep apnea (adult) (pediatric); B00.9 Herpesviral infection, unspecified; Z23 Encounter for immunization

== ENCOUNTER → 2024-03-05 08:24 | Outpatient (BNVA) | payer OTHER, SELFPAY | PROVIDERS: PCP Physician Assistant; Visit Provider Physician Assistant | DX: I10 Essential (primary) hypertension (principal); L73.9 Follicular disorder, unspecified; E78.00 Pure hypercholesterolemia, unspecified; G47.33 Obstructive sleep apnea (adult) (pediatric); B00.9 Herpesviral infection, unspecified | CPT/HCPCS: 90471; 96127; 99212 ==

== ENCOUNTER 2024-08-07 06:36 | Outpatient (REF) | payer OTHER, SELFPAY ==
[2024-08-07 08:07] LABS: Prostate Specific Antigen 1.58 ng/mL (<0.05-4.0)
== END 2024-08-07 06:37 | disposition home or self-care (01) ==
LOC: HO.LAB 06:36
PROVIDERS: PCP Physician Assistant; Visit Provider Urology
DX: N32.0 Bladder-neck obstruction (principal)
CPT/HCPCS: 36415; 84153

== ENCOUNTER 2024-08-14 08:46 | Outpatient (AMB) | payer OTHER, SELFPAY ==
--- NOTE | 2024-08-14 08:48 | A.OFFVIS_ITS ---
Intake Visit Reasons: 6m/PSA(PSA?) Intake Note: Patient is present for 6M/PSA Urology Medication:TADALAFIL Antibiotic Allergy:NONE Blood Thinner:NONE Fruit Bar Maker Required: No Allergies No Known Allergies Allergy (Verified 08/14/24 08:50) HPI Comments Details: London GALDAMEZ is a very pleasant male. He is a patient of Dr Mccarthy. He is seen for the following urologic conditions - erectile dysfunction - lower urinary tract symptoms Telemedicine Evaluation 15 min Consultation [employer] [facility] Video Six-month follow-up Continued good effect from daily tadalafil for lower urinary tract symptoms. 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 [employer] Lower urinary tract symptoms Progression of past 12 months Nocturia x2, urinary hesitancy No family history Current therapy daily tadalafil 5 mg Erectile dysfunction Switched to daily tadalafil 5 mg secondary to prostate issues Renewal provided Baseline testosterone 06/03 620, PSA 1.6, 03/03 1.4, 08/04 P 1.6 Associated obstructive sleep apnea Also high cholesterol and blood pressure [facility] History (Reviewed 02/14/24 @ 08:46 by Tess Tenorio [facility]) Polycythemia Anxiety Dissecting folliculitis of scalp Chronic RUQ pain Erectile dysfunction HTN (hypertension) Cervical spondylitis with radiculitis ZAHRAA (obstructive sleep apnea) Surgical History History of neck surgery History of shoulder surgery History of vasectomy History of excision of lesion Family History Father Medical history unknown Primary cancer of kidney Mother Hypertension Heart attack CAD (coronary artery disease) Paternal Uncle Brain cancer Brother Hypertension Sister Colon cancer, Onset Age: 44 Other Mental health disorder Social History (System 08/13/24 @ 15:04 by Esperanza Everett) Housing: House Alcohol intake: current Alcohol intake frequency: holidays/special occasions only Alcohol type: hard liquor Patient Tobacco Use Status: Never used Tobacco e-Cigarette/Vaping Use: Never Used Second Hand Smoke Exposure: No service: No Current occupational status: employed Current occupational exposures/hazards: No Cognitive needs: No Hearing needs: No Vision needs: No Review of Systems Const All systems reviewed & are unremarkable except as noted in HPI and below Reports no additional complaints Resp Reports no additional complaints GI Reports no additional complaints Reports as per HPI Musc Reports no additional complaints Physical Exam Telemedicine evaluation Appropriate responses Regular breathing rate and rhythm HEENT Head: Yes normal to inspection Ears: hearing grossly normal bilaterally Eyes General: appearance normal, both eyes and all related structures Neck Neck: Yes normal visual inspection Chest Chest palpation & inspection: normal inspection of the chest Resp Effort & Inspection: normal respiratory effort and able to speak in complete sentences Telehealth Telehealth Telehealth Platform: [employer] Location of provider rendering services: practice address Location of patient: address on file Patient Identification confirmed using: Name, : Yes Telehealth method: video Patient verbally consented to treatment: Yes Patient verbally consented to billing insurance company: Yes Patient informed of any privacy concerns related to visit: Yes Minutes spent on Phone/Video with Pt.: 15 Assessment & Plan Assessment & Plan (1) Erectile dysfunction: Code(s): N52.9 - Male erectile dysfunction, unspecified Category: Medical Qualifiers: Erectile dysfunction type: vasculogenic Vasculogenic erectile dysfunction type: due to arterial insufficiency Qualified Code(s): N52.01 - Erectile dysfunction due to arterial insufficiency (2) Bladder outlet obstruction: Code(s): N32.0 - Bladder-neck obstruction Category: Medical (3) Urinary hesitancy: Code(s): R39.11 - Hesitancy of micturition Category: Medical Plan 6m f/u Patient Instructions: This note is constructed using voice recognition software. While every effort has been made to ensure accuracy transcription typist errors may have been included. Imaging studies, laboratory and physical exam results were discussed and reviewed in detail. No major barriers to patient understanding were identified. An opportunity to ask questions regarding the treatment plan was provided. All questions were answered. The patient expressed understanding and agreement with the above treatment plan. The patient is aware they should contact our office by phone for worsening of their current condition or the appearance of new urologic symptoms. Compliance is encouraged with any medications and followup testing that is ordered. It is a privilege to participate in the urologic care of your patient. If you have any questions or concerns regarding treatment for the above conditions, or other urologic issues, please do not hesitate to contact me. The office telephone contact is [phone]. Sincerely, Dr Elijah Chapman MD, [facility] - Urology Compassionate Specialist Care for the Genitourinary System Coding Level of Care Code Tele Est Pt Level 3 (17072) Diagnoses Erectile dysfunction due to arterial insufficiency N52.01 Erectile dysfunction type: vasculogenic Vasculogenic erectile dysfunction type: due to arterial insufficiency Bladder outlet obstruction N32.0 Urinary hesitancy R39.11
== END 2024-08-14 09:27 | disposition home or self-care (01) ==
LOC: HO.HUSH 08:46
PROVIDERS: PCP Physician Assistant; Visit Provider Urology
DX: N52.01 Erectile dysfunction due to arterial insufficiency (principal); N32.0 Bladder-neck obstruction; R39.11 Hesitancy of micturition
CPT/HCPCS: 98004

== ENCOUNTER → 2024-08-14 08:46 | Outpatient (BNVA) | payer OTHER, SELFPAY | PROVIDERS: PCP Physician Assistant; Visit Provider Urology ==

== ENCOUNTER 2024-08-28 07:47 | Outpatient (REF) | payer OTHER, SELFPAY ==
[2024-08-28 08:27] LABS: Hemoglobin 15.6 g/dl (14.0-18.0); Mean Corpuscular HGB Conc 32.5 g/dl (31.0-36.0); Mean Corpuscular Hemoglobin 24.8 pg (27.0-33.0); Mean Corpuscular Volume 76.2 fL (80.0-98.0); Mean Platelet Volume 11.2 fL (9.4-12.4); Platelet Count 252 X10*3/uL (160-400); Red Cell Distribution Width 18.6 % (11.0-16.0); White Blood Count 4.7 X10*3/uL (4.8-10.8)
[2024-08-28 09:01] LABS: Alanine Aminotransferase 26 U/L (0-40); Albumin Level 4.1 g/dL (3.5-5.0); Anion Gap 11 (12-20); Aspartate Amino Transferase 26 U/L (5-37); Bilirubin Total 1.8 mg/dL (0.0-1.0); Blood Urea Nitrogen 18 mg/dL (9-16); Calcium 9.3 mg/dL (8.4-10.2); Carbon Dioxide 28 mmol/L (22-29); Chloride 105 mmol/L (96-108); Cholesterol 185 mg/dL (<200); Estimated Glomerular Filt Rate > 60; Glucose Fasting 99 mg/dL (60-99); HDL Cholesterol 41 mg/dL (>40); LDL Cholesterol Calculated 133 mg/dL (<100); Potassium 4.4 mmol/L (3.3-5.1); Sodium 140 mmol/L (135-145); Total Protein 7.5 g/dL (6.5-8.0); Triglycerides 55 mg/dL (<150)
[2024-08-28 09:09] LABS: Alkaline Phosphatase 69 U/L (39-117)
[2024-08-28 09:13] LABS: Prostate Specific Antigen Scr 1.37 ng/mL (<0.05-4.0)
== END 2024-08-28 07:48 | disposition home or self-care (01) ==
LOC: HO.LAB 07:47
PROVIDERS: PCP Physician Assistant; Visit Provider Physician Assistant
DX: D75.1 Secondary polycythemia (principal); E78.00 Pure hypercholesterolemia, unspecified; I10 Essential (primary) hypertension; Z12.5 Encounter for screening for malignant neoplasm of prostate
CPT/HCPCS: 36415; 80053; 80061; 84153; 85027

== ENCOUNTER 2025-01-01 06:58 | Outpatient (REF) | payer OTHER, SELFPAY ==
--- NOTE | 2025-01-01 07:32 | ECG_ITS ---
Test Reason : htn Blood Pressure : */* mmHG Vent. Rate : 83 BPM Atrial Rate : 83 BPM P-R Int : 152 ms QRS Dur : 94 ms QT Int : 378 ms P-R-T Axes : 69 74 66 degrees QTcB Int : 444 ms Normal sinus rhythm Normal ECG When compared with ECG of 18-Jan-2010 10:38, MANUAL COMPARISON REQUIRED PREVIOUS ECG IS INCOMPATIBLE Referred By: Bonifacio Mccarthy Electronically Signed By: MEHRDAD FUCHS MD
[2025-01-01 07:40] LABS: Hematocrit 52.7 % (42.0-52.0); Hemoglobin 17.3 g/dl (14.0-18.0); Mean Corpuscular HGB Conc 32.8 g/dl (31.0-36.0); Mean Corpuscular Hemoglobin 25.8 pg (27.0-33.0); Mean Corpuscular Volume 78.7 fL (80.0-98.0); NRBC Abs Auto 0.000 X10*3/uL (0.0-0.012); NRBC Pct Auto 0.0 /100WBC (0.0-0.2); Platelet Count 246 X10*3/uL (160-400); Red Blood Count 6.70 X10*6/uL (4.60-5.80); White Blood Count 5.4 X10*3/uL (4.8-10.8)
[2025-01-01 08:03] LABS: Microalbum/Creatinine Ratio Ur 4.4 ug/mg cr (<30)
[2025-01-01 08:14] LABS: Alanine Aminotransferase 34 U/L (0-40); Albumin Level 4.5 g/dL (3.5-5.0); Alkaline Phosphatase 70 U/L (39-117); Anion Gap 13 (12-20); Aspartate Amino Transferase 31 U/L (5-37); Blood Urea Nitrogen 20 mg/dL (9-16); Calcium 9.6 mg/dL (8.4-10.2); Carbon Dioxide 28 mmol/L (22-29); Chloride 101 mmol/L (96-108); Cholesterol 212 mg/dL (<200); Estimated Glomerular Filt Rate > 60; HDL Cholesterol 49 mg/dL (>40); Potassium 4.4 mmol/L (3.3-5.1); Sodium 138 mmol/L (135-145); Total Protein 7.7 g/dL (6.5-8.0); Triglycerides 84 mg/dL (<150)
== END 2025-01-01 06:59 | disposition home or self-care (01) ==
LOC: HO.LAB 06:58
PROVIDERS: PCP Physician Assistant; Visit Provider Physician Assistant
DX: I10 Essential (primary) hypertension (principal); E78.9 Disorder of lipoprotein metabolism, unspecified; R55 Syncope and collapse
CPT/HCPCS: 36415; 80053; 80061; 82043; 82570; 85027; 93005

== ENCOUNTER → 2025-01-01 07:32 | Outpatient (BNV) | payer OTHER, SELFPAY | PROVIDERS: PCP Physician Assistant; Visit Provider Internal Medicine Cardiovascular Disease | DX: I10 Essential (primary) hypertension (principal) | CPT/HCPCS: 93010 ==

== ENCOUNTER 2025-01-08 06:34 | Outpatient (REF) | payer OTHER, SELFPAY ==
[2025-01-08 07:31] LABS: Hematocrit 48.6 % (42.0-52.0); Hemoglobin 16.2 g/dl (14.0-18.0); Mean Corpuscular HGB Conc 33.3 g/dl (31.0-36.0); Mean Corpuscular Hemoglobin 25.9 pg (27.0-33.0); Mean Corpuscular Volume 77.8 fL (80.0-98.0); NRBC Abs Auto 0.000 X10*3/uL (0.0-0.012); NRBC Pct Auto 0.0 /100WBC (0.0-0.2); Platelet Count 188 X10*3/uL (160-400); Red Blood Count 6.25 X10*6/uL (4.60-5.80); White Blood Count 5.2 X10*3/uL (4.8-10.8)
[2025-01-08 07:51] LABS: Alanine Aminotransferase 37 U/L (0-40); Albumin Level 4.2 g/dL (3.5-5.0); Alkaline Phosphatase 66 U/L (39-117); Anion Gap 13 (12-20); Aspartate Amino Transferase 29 U/L (5-37); Blood Urea Nitrogen 20 mg/dL (9-16); Calcium 9.6 mg/dL (8.4-10.2); Carbon Dioxide 29 mmol/L (22-29); Chloride 104 mmol/L (96-108); Cholesterol 201 mg/dL (<200); Estimated Glomerular Filt Rate > 60; HDL Cholesterol 46 mg/dL (>40); Potassium 4.6 mmol/L (3.3-5.1); Sodium 141 mmol/L (135-145); Total Protein 7.1 g/dL (6.5-8.0); Triglycerides 62 mg/dL (<150)
[2025-01-14 18:33] LABS: Testosterone, Free 74.6 pg/mL (35.0-155.0)
== END 2025-01-08 06:35 | disposition home or self-care (01) ==
LOC: HO.LAB 06:34
PROVIDERS: PCP Physician Assistant; Visit Provider Physician Assistant
DX: R68.82 Decreased libido (principal); E78.9 Disorder of lipoprotein metabolism, unspecified
CPT/HCPCS: 36415; 80053; 80061; 84402; 84403; 85027

== ENCOUNTER 2025-02-17 08:27 | Outpatient (AMB) | payer OTHER, SELFPAY ==
--- NOTE | 2025-02-17 08:38 | MHC.OFFVIS ---
Intake Visit Reasons: 6m follow up Intake Note: Patient is present for 6M/PSA Urology Medication:TADALAFIL,SILDENAFIL Antibiotic Allergy:NONE Blood Thinner:NONE Labs done 01/08/25 Total testoterone 424, Fr Testosterone 74.6 PVR:75 mls Stock Preparation Supervisor Required: No Accompanied by: Self / Same As Patient Allergies No Known Allergies Allergy (Verified 02/17/25 08:40) HPI Comments Details: London GALDAMEZ is a very pleasant male. He is a patient of Dr Mccarthy. He is seen for the following urologic conditions - erectile dysfunction - lower urinary tract symptoms Six-month follow-up Continued good effect from daily tadalafil for lower urinary tract symptoms. Reduced urinary hesitancy and frequency Improved baseline erections with nocturnal erections Still uses on demand Viagra when indicated Testosterone lower. 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 [employer] - travels every week Lower urinary tract symptoms Progression of past 12 months Nocturia x2, urinary hesitancy No family history Current therapy daily tadalafil 5 mg Erectile dysfunction Switched to daily tadalafil 5 mg secondary to prostate issues Renewal provided Baseline testosterone 06/03 620, PSA 1.6, 03/03 1.4, 08/04 P 1.6, 01/04 424 Associated obstructive sleep apnea Also high cholesterol and blood pressure [facility] Medical History Polycythemia Anxiety Dissecting folliculitis of scalp Chronic RUQ pain Erectile dysfunction HTN (hypertension) Cervical spondylitis with radiculitis ZAHRAA (obstructive sleep apnea) Surgical History History of neck surgery History of shoulder surgery History of vasectomy History of excision of lesion Family History Father Medical history unknown Primary cancer of kidney Mother Hypertension Heart attack CAD (coronary artery disease) Paternal Uncle Brain cancer Brother Hypertension Sister Colon cancer, Onset Age: 44 Other Mental health disorder Social History (System 08/13/24 @ 15:04 by Esperanza Everett) Housing: House Alcohol intake: current Alcohol intake frequency: holidays/special occasions only Alcohol type: hard liquor Patient Tobacco Use Status: Never used Tobacco e-Cigarette/Vaping Use: Never Used Second Hand Smoke Exposure: No service: No Current occupational status: employed Current occupational exposures/hazards: No Cognitive needs: No Hearing needs: No Vision needs: No Review of Systems Const Denies chills and Denies fever(s) Card Reports no additional complaints and Denies syncope Resp Denies cough GI Denies abdominal pain and Denies heartburn Reports as per HPI and Denies change in libido Neuro Denies syncope Psych Denies change in libido Endo Denies change in libido Physical Exam Const General: cooperative, healthy appearing, comfortable and no acute distress Orientation/consciousness: patient oriented x3 HEENT Face and sinus: Yes normal facial exam Mouth: moist mucous membranes Neck Neck: Yes normal visual inspection, Yes full ROM and Yes trachea midline Chest Chest palpation & inspection: normal inspection of the chest Resp Effort & Inspection: normal respiratory effort, able to speak in complete sentences and no respiratory distress GI Inspection: Yes normal to inspection Back/Spine/Pelvis Cervical Spine: normal cervical lordosis Thoracic/Lumbar Spine: thoracic and lumbar spine normal to inspection Skin General skin exam: no rashes or lesions noted Neuro General: patient oriented x3, gait normal, tone normal and moves all extremities Extrem General: Yes normal to inspection and Yes capillary refill normal Assessment & Plan Assessment & Plan (1) Erectile dysfunction: Code(s): N52.9 - Male erectile dysfunction, unspecified Category: Medical Qualifiers: Erectile dysfunction type: vasculogenic Vasculogenic erectile dysfunction type: due to arterial insufficiency Qualified Code(s): N52.01 - Erectile dysfunction due to arterial insufficiency (2) Bladder outlet obstruction: Code(s): N32.0 - Bladder-neck obstruction Category: Medical Plan Six-month follow-up lab work office Orders: Orders Testosterone, Free/Total 5 Months N52.01 - Erectile dysfunction due to arterial insufficiency Medications: Refilled sildenafil administer 60 minutes before intended activity 100 mg PO ONCE PRN 30 tabs 1RF sexual activity 30 days N52.01 - Erectile dysfunction due to arterial insufficiency, N52.9 - Male erectile dysfunction, unspecified tadalafil Daily for prostate 5 mg PO DAILY 90 tabs 1RF 90 days N52.9 - Male erectile dysfunction, unspecified, R39.11 - Hesitancy of micturition Patient Instructions: This note is constructed using voice recognition software. While every effort has been made to ensure accuracy decorating supervisor errors may have been included. Imaging studies, laboratory and physical exam results were discussed and reviewed in detail. No major barriers to patient understanding were identified. An opportunity to ask questions regarding the treatment plan was provided. All questions were answered. The patient expressed understanding and agreement with the above treatment plan. The patient is aware they should contact our office by phone for worsening of their current condition or the appearance of new urologic symptoms. Compliance is encouraged with any medications and followup testing that is ordered. It is a privilege to participate in the urologic care of your patient. If you have any questions or concerns regarding treatment for the above conditions, or other urologic issues, please do not hesitate to contact me. The office telephone contact is [phone]. Sincerely, Dr Elijah Chapman MD, [facility] - Urology Compassionate Specialist Care for the Genitourinary System Coding Level of Care Code Est Pt Level 3 (31750) Complex EM visit Add On G2211 Diagnoses Erectile dysfunction due to arterial insufficiency N52.01 Erectile dysfunction type: vasculogenic Vasculogenic erectile dysfunction type: due to arterial insufficiency Bladder outlet obstruction N32.0
== END 2025-02-17 09:11 | disposition home or self-care (01) ==
LOC: HO.HUSH 08:27
PROVIDERS: PCP Physician Assistant; Visit Provider Urology
DX: N52.01 Erectile dysfunction due to arterial insufficiency (principal); N32.0 Bladder-neck obstruction
CPT/HCPCS: 99213

== ENCOUNTER → 2025-02-17 08:27 | Outpatient (BNVA) | payer OTHER, SELFPAY | PROVIDERS: PCP Physician Assistant; Visit Provider Urology | DX: N32.0 Bladder-neck obstruction (principal); N52.01 Erectile dysfunction due to arterial insufficiency | CPT/HCPCS: 51798; 99212 ==

== ENCOUNTER 2025-02-18 15:18 | Outpatient (AMB) | payer OTHER, SELFPAY ==
--- NOTE | 2025-02-18 15:21 | MHC.OFFVIS ---
Vital Signs 02/18/25 15:22 Height 6 ft 8 in Weight 255 lb 11.779 oz BMI 28.1 BP 158/96 H Blood Pressure Location Rt brachial Position Sitting Pulse 98 Pulse Source Pulse Oximeter Pulse Oximetry (%) 95 Oxygen Delivery Method Room Air Intake Visit Reasons: Obstructive sleep apnea Allergies No Known Allergies Allergy (Verified 02/18/25 17:03) Medication List - Last Reconciled 02/18/25 by Tobi Pena MD doxycycline hyclate 100 mg PO BID hydrochlorothiazide 12.5 mg PO DAILY 90 days omeprazole 20 mg PO DAILY 30 days sildenafil 100 mg PO ONCE PRN 30 days tadalafil 5 mg PO DAILY 90 days valacyclovir (Valtrex) 1,000 mg PO BID PRN 7 days valsartan 160 mg PO DAILY 30 days Do you need a note to return to daycare/school/sports/work: No HPI HPI Obstructive sleep apnea: Details: THIS 54 YEARS OLD GENTLEMAN, LIVES HERE IN [facility], 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 HE STAYS IN [facility] OF FOR 5 DAYS AND THEN COMES OVER HERE FOR THE WEEKEND . HE HAD BEEN DIAGNOSED TO HAVE MILD OBSTRUCTIVE SLEEP APNEA, WITH TOTAL SLEEP TIME AHI 6.4, BUT 14.4 IN SUPINE POSITION. THIS WAS BACK IN 2020. HE PRESENTED WITH THE SYMPTOMS OF POOR SLEEP AT NIGHT AND REMAINING TIRED AND SLEEPY DURING THE DAYTIME. THUS HE WAS STARTED ON CPAP THERAPY, AND ALSO ADVISED TO ADOPT POSITION THERAPY AND AVOID SLEEPING IN SUPINE POSITION. THIS WAS HIS 2ND TIME TO TRY CPAP, AND AGAIN HE USED CPAP ONLY FOR A FEW DAYS AND GAVE UP RETURNED THE MACHINE. HE CLAIMS THAT HE JUST CAN NOT KEEP THE MASK ON HIS FACE. NOW HE COMES BACK TO DISCUSS ABOUT POSSIBILITY OF GOING FOR INSPIRE, TO TREAT HIS SLEEP APNEA. HE IS NOT OVERLY OBESE . HE DOES HAVE MILD REGRESSION OF THE CHIN, WHICH MAY BE THE CAUSE OF HIS SLEEP APNEA. HE TRIES TO SLEEP IN THE LATERAL POSITION BUT DURING SLEEP HE GOES TO SLEEP IN SUPINE POSITION. [facility] Medical History Polycythemia Anxiety Dissecting folliculitis of scalp Chronic RUQ pain Erectile dysfunction HTN (hypertension) Cervical spondylitis with radiculitis ZAHRAA (obstructive sleep apnea) Surgical History History of neck surgery History of shoulder surgery History of vasectomy History of excision of lesion Family History Father Medical history unknown Primary cancer of kidney Mother Hypertension Heart attack CAD (coronary artery disease) Paternal Uncle Brain cancer Brother Hypertension Sister Colon cancer, Onset Age: 44 Other Mental health disorder Social History Housing: House Alcohol intake: current Alcohol intake frequency: holidays/special occasions only Alcohol type: hard liquor Patient Tobacco Use Status: Never used Tobacco e-Cigarette/Vaping Use: Never Used Second Hand Smoke Exposure: No service: No Current occupational status: employed Current occupational exposures/hazards: No Cognitive needs: No Hearing needs: No Vision needs: No Review of Systems Const All systems reviewed & are unremarkable except as noted in HPI and below Reports fatigue and Reports snoring (EXCESSIVE) ENT Reports dry mouth (IN AMs.) and Reports nasal congestion (MILD OFF AND ON .) Resp Reports snoring (EXCESSIVE) Endo Reports fatigue Physical Exam Vital Signs: Last Vital Signs Pulse 98 02/18/25 15:22 BP 158/96 H 02/18/25 15:22 Pulse Ox 95 02/18/25 15:22 Oxygen Delivery Method Room Air 02/18/25 15:22 BMI result Body Mass Index 28.1 Const General: healthy appearing, no acute distress, alert and awake Orientation/consciousness: patient oriented x3 HEENT Head: Yes normal to inspection General nose exam: No nasal polyps present and No nasal discharge present Face and sinus: Yes sinuses nontender Mouth: oropharynx normal Throat: Yes posterior oropharynx normal Eyes General: appearance normal, both eyes and all related structures Neck Neck: Yes normal visual inspection, Yes no lymphadenopathy, Yes trachea midline, Yes no JVD and Yes other (NECK CIRCUMFERENCE 16-1/2 INCH) Thyroid: Thyroid normal Chest Chest palpation & inspection: normal inspection of the chest and normal palpation of entire chest wall Resp Auscultation: clear to auscultation bilaterally, no rhonchi and no wheezes Cardio Palpation: normal PMI Rate: regular rate Rhythm: regular rhythm Heart sounds: no gallops and no murmurs Peripheral pulses: Peripheral pulses 2+ throughout GI Palpation (GI): Soft to palpation, nontender, No hepatosplenomegaly present and no masses Auscultation: normal bowel sounds Back/Spine/Pelvis Thoracic/Lumbar Spine: thoracic and lumbar spine normal to inspection Skin General skin exam: no rashes or lesions noted Neuro General: patient oriented x3 and no focal motor deficits Cranial nerves: Yes CN's II-XII intact bilaterally Extrem General: Yes normal to inspection, Yes no clubbing, cyanosis or edema, Yes no calf tenderness and No venous stasis dermatitis Psych Appearance: grossly normal and well kempt Speech and movement: Normal speech and movement present Results Reviewed Results Reviewed: RESULTS OF HIS PREVIOUS HOME-BASED SLEEP STUDY ON 06/20/2020 REVIEWED. HE HAD TOTAL SLEEP TIME AHI 6.4 C/W MILD ZAHRAA . BUT IN SUPINE POSITION HE HAD A AHI OF 14.4, Assessment & Plan Assessment & Plan (1) ZAHRAA (obstructive sleep apnea): Comment: THIS GENTLEMAN DOES HAVE H/O OBSTRUCTIVE SLEEP APNEA, OVERALL MILD BUT MILD TO MODERATE IN SUPINE POSITION. HE HAS NOT BEEN ABLE TO USE THE CPAP. CAME TO DISCUSS ABOUT OTHER OPTIONS SUCH INSPIRE. Code(s): G47.33 - Obstructive sleep apnea (adult) (pediatric) Category: Medical Plan: I TOLD HIM THAT TO EXPLORE OTHER OPTIONS SUCH JUS DENTAL DEVICE, OR INSPIRE , HE HAS TO UNDERGO SLEEP STUDY AGAIN. THIS TIME WE WOULD LIKE TO DO A POLYSOMNOGRAM STUDY IN THE SLEEP LAB , DUE GET MORE DETAILS ABOUT HIS PATTERN OF SLEEP, SLEEP QUALITY AND SLEEP APNEA. AFTER THAT WILL DISCUSS ALL POSSIBILITIES OF TREATMENT. I DID DESCRIBE TO HIM THE INSPIRE PROCEDURE , BEING A SURGICAL PROCEDURE AND HAS TO BE APPROVED BY INSURANCE. ANYWAY WE WILL DISCUSS MORE AFTER THE SLEEP STUDY (2) HAL (generalized anxiety disorder): Comment: IS SEEMS THAT HE DOES HAVE TENDENCY TO BECOME ANXIOUS AND THIS MAY BE PARTLY THE REASON FOR HIS POOR SLEEP AT NIGHT. AGAIN THE POLYSOMNOGRAM STUDY WILL GIVE US MORE INFORMATION. Code(s): F41.1 - Generalized anxiety disorder Category: Medical Plan: HE UNDERSTANDS WELL AND IS AGREEABLE TO HAVE A POLYSOMNOGRAM STUDY AND THEN COME AND DISCUSS WITH ME. Orders: Orders RT PSG in-lab sleep study Today F41.1 - Generalized anxiety disorder, G47.33 - Obstructive sleep apnea (adult) (pediatric) Coding Level of Care Code Est Pt Level 4 (30289) Diagnoses ZAHRAA (obstructive sleep apnea) G47.33 HAL (generalized anxiety disorder) F41.1
[2025-02-18 15:22] VITALS: BP 158/96; PULSE 98; O2SAT 95; BMI 28.1
== END 2025-02-18 16:03 | disposition home or self-care (01) ==
LOC: HO.HPS 15:19
PROVIDERS: PCP Physician Assistant; Visit Provider Internal Medicine
DX: G47.33 Obstructive sleep apnea (adult) (pediatric) (principal); F41.1 Generalized anxiety disorder
CPT/HCPCS: 99214

== ENCOUNTER → 2025-02-18 15:18 | Outpatient (BNVA) | payer OTHER, SELFPAY | PROVIDERS: PCP Physician Assistant; Visit Provider Internal Medicine | DX: G47.33 Obstructive sleep apnea (adult) (pediatric) (principal); F41.1 Generalized anxiety disorder | CPT/HCPCS: 99212 ==

== ENCOUNTER 2025-03-25 10:10 | Outpatient (AMB) | payer OTHER, SELFPAY ==
[2025-03-25 10:21] VITALS: BP 170/120; PULSE 106; TEMP 36.4; O2SAT 96; BMI 27.8
--- NOTE | 2025-03-25 10:21 | MHC.PC.OV ---
Vital Signs 03/25/25 10:21 Height 6 ft 8 in Weight 253 lb BMI 27.8 BP 170/120 H Blood Pressure Location Lt brachial Position Sitting Pulse 106 H Pulse Source Pulse Oximeter Temp 97.5 F Temp Source Temporal Artery Scan Pulse Oximetry (%) 96 Oxygen Delivery Method Room Air Intake Visit Reasons: Annual PE Instrument/Control Technician Required: No Accompanied by: Self / Same As Patient Allergies No Known Allergies Allergy (Verified 03/25/25 10:53) Medication List - Last Reconciled 03/25/25 by Bonifacio Mccarthy PA-C doxycycline hyclate 100 mg PO BID hydrochlorothiazide 12.5 mg PO DAILY 90 days omeprazole 20 mg PO DAILY 30 days sildenafil 100 mg PO ONCE PRN 30 days tadalafil 5 mg PO DAILY 90 days valacyclovir (Valtrex) 1,000 mg PO BID PRN 7 days valsartan 160 mg PO DAILY 30 days Tobacco use date assessed: 03/25/25 Dental Screening Dental Screen Date: 03/05/24 Did you have a dental visit in the last 12 months?: No Did you have a dental problem in the last 6 months where you did not have access to dental care?: No Was dental information given to patient?: Patient has dentist HPI Annual PE HPI Details Patient is a 54 year male here today for a routine annual physical. Patient has a past medical history significant for hyperlipidemia, obstructive sleep apnea, polycythemia, generalized anxiety disorder, hypertension and recurrent folliculitis. Hypertension:? Blood pressure today in office today acceptable..? Continues to be compliant with valsartan 160 mg and hydrochlorothiazide.? He did get cardiac stress test last year which did not show any evidence of coronary artery disease. Does have a family history of coronary artery disease He otherwise denies any vision issues, dizziness, headaches her chest discomforts.? He does report at home blood pressures have been better controlled 130s to 140 systolic. PLAN: Will increase his valsartan to maximal dose and continue to monitor blood pressure .. Hyperlipidemia: Most recent lipid panel showing borderline high total cholesterol He has been making lifestyle modifications to reduce cholesterol. .. .. Polycythemia: Noted elevated RBCs and hemoglobin, likely due to untreated obstructive sleep apnea. Is followed by Hematology. Has tried to treat his obstructive sleep apnea with CPAP machine though has been unable to tolerate this. .. Obstructive sleep apnea: Has been found to have severe obstructive sleep apnea though has been unable to tolerate CPAP mask and has luna CPAP treatment. Continues to have sequelae untreated obstructive sleep apnea on treated with elevated blood pressures, daytime somnolence, finger clubbing, polycythemia. He is not a great candidate for inspire device Vaccines: UTD with COVID, up-to-date with tetanus vaccine, considering pneumonia and shingles vaccines Colon cancer screening: Colonoscopy done in 2023 -repeat 5 years due to family history colon cancer [facility] Medical History Polycythemia Anxiety Dissecting folliculitis of scalp Chronic RUQ pain Erectile dysfunction HTN (hypertension) Cervical spondylitis with radiculitis ZAHRAA (obstructive sleep apnea) Surgical History History of neck surgery History of shoulder surgery History of vasectomy History of excision of lesion Family History Father Medical history unknown Primary cancer of kidney Mother Hypertension Heart attack CAD (coronary artery disease) Paternal Uncle Brain cancer Brother Hypertension Sister Colon cancer, Onset Age: 44 Other Mental health disorder Social History Housing: House Alcohol intake: current Alcohol intake frequency: holidays/special occasions only Alcohol type: hard liquor Patient Tobacco Use Status: Never used Tobacco e-Cigarette/Vaping Use: Never Used Second Hand Smoke Exposure: No service: No Current occupational status: employed Current occupational exposures/hazards: No Cognitive needs: No Hearing needs: No Vision needs: No Questionnaire PHQ-9 Over the last 2 weeks, how often have you been bothered by any of the following problems? 1. Little interest or pleasure in doing things: not at all 2. Feeling down, depressed, or hopeless: not at all 3. Trouble falling or staying asleep, or sleeping too much: not at all 4. Feeling tired or having little energy: not at all 5. Poor appetite or overeating: not at all 6. Feeling bad about yourself - or that you are a failure or have let yourself or your family down: not at all 7. Trouble concentrating on things, such as reading the newspaper or watching television: not at all 8. Moving or speaking so slowly that other people could have noticed. Or the opposite - being so fidgety or restless that you have been moving around a lot more than usual: not at all 9. Thoughts that you would be better off or of hurting yourself in some way: not at all Total score: 0 Depression Screening Interpretation: Negative Depression Screening Done: Yes 28749 - PHQ-9 Billing: Yes Source: Developed by Drs. Alin Glaser, Renita Camacho, Kevin Mendoza and colleagues, with an educational juan pablo from [employer]. Thrive Questionnaire Date Thrive assessed: 03/05/24 I am a: Patient What is your living situation today?: I have a steady place to live Within the past 12 months, did the food you bought not last and you didn't have the money to get more?: I choose not to answer this question Within the past 12 months, did you worry whether your food would run out before you got money to buy more?: I choose not to answer this question Do you have trouble paying for medicines?: I choose not to answer this question Do you have trouble getting transportation to medical appointments?: I choose not to answer this question Do you have trouble paying your heating and electricity bill?: I choose not to answer this question Do you have trouble taking care of your child, family member or friend?: I choose not to answer this question Do you have trouble with day-to-day activities such as bathing, preparing meals, shopping, managing finances, etc.?: I choose not to answer this question Are you currently unemployed and looking for a job?: I choose not to answer this question Are you interested in more education?: I choose not to answer this question Please select the resources that you would like help with: None Currently or been in a relationship where the following occur: I choose not to answer THRIVE Score: 0 AUDIT C Alcohol Use Questionnaire (AUDIT-C) 1. How often do you have a drink containing alcohol?: Never 2. How many drinks containing alcohol do you have on a typical day when you are drinking?: 1 or 2 3. How often do you have six or more drinks on one occasion?: Never Total Score: 0 Score Reviewed/Action Taken: No HAL-7 AMB Questionnaire HAL-7 Date HAL - 7 assessed: 03/05/24 Feeling nervous, anxious, or on edge: 0 = Not at all Not being able to stop or control worryin = Not at all Worrying too much about different things: 0 = Not at all Trouble relaxin = Not at all Being so restless that it is hard to sit still: 0 = Not at all Becoming easily annoyed or irritable: 0 = Not at all Feeling afraid as if something awful might happen: 0 = Not at all Total HAL-7 score (0-4 normal; 5-9 mild; 10-14 moderate; 15-21 severe): 0 Source: Developed by Drs. Alin Glaser, Renita Camacho, Kevin Mendoza and colleagues, with an educational juan pablo from [employer]. HAL-7 Assessment Billing HAL-7 Assessment Tool: HAL-7 Assessment 15420 Review of Systems Const Denies body aches, Denies chills, Denies excessive sweating, Denies fatigue, Denies fever(s) and Denies headache(s) Eyes Denies blurry vision ENT Denies dysphagia, Denies vertigo, Denies dizziness, Denies headache(s), Denies hearing loss and Denies tinnitus Card Denies chest pain, Denies chest pain with activity, Denies syncope, Denies irregular heart rhythm and Denies dyspnea Resp Denies chest congestion, Denies cough, Denies hemoptysis, Denies dyspnea and Denies wheezing GI Denies abdominal pain, Denies melena, Denies hematochezia, Denies coffee ground emesis, Denies dysphagia, Denies diarrhea, Denies nausea and Denies vomiting Denies difficulty urinating, Denies dysuria, Denies urinary frequency, Denies urinary hesitancy and Denies urinary urgency Musc Denies arthralgias, Denies limited range of motion, Denies muscle cramps and Denies muscle weakness Skin/Breast Denies rash and Denies skin ulcer Neuro Denies Abnormal speech present, Denies confusion, Denies vertigo, Denies dizziness, Denies syncope, Denies headache(s), Denies memory loss and Denies seizure-like activity Psych Denies anxiety, Denies confusion, Denies depression, Denies memory loss, Denies panic attacks and Denies paranoia Endo Denies excessive sweating, Denies fatigue, Denies flushing, Denies polydipsia and Denies polyuria Aller/Immun Denies wheezing Physical exam (Primary Care) Vital Signs: Last Vital Signs Temp 97.5 F 03/25/25 10:21 Pulse 106 H 03/25/25 10:21 BP 170/120 H 03/25/25 10:21 Pulse Ox 96 03/25/25 10:21 Oxygen Delivery Method Room Air 03/25/25 10:21 BMI result Body Mass Index 27.8 Tobacco/Smoking Status: Tobacco use Status Tobacco use date assessed 03/25/25 03/25/25 10:23 Patient Tobacco Use Status Never used Tobacco 03/25/25 10:23 e-Cigarette/Vaping Use Never Used 03/25/25 10:23 PHQ-9: PHQ-9 Score PHQ-9: Total score 0 03/25/25 10:23 Depression Screening Interpretation: Negative Thrive Assessment: Date of Thrive Assessment Date Thrive assessed 03/05/24 03/25/25 10:23 Currently or been in a relationship where the following occur: I choose not to answer Const General: cooperative, comfortable, no acute distress, alert and awake; No confusion Orientation/consciousness: oriented to person, oriented to place, patient oriented x3 and No confusion HENMT Head: Yes normocephalic Ears: external ears normal and TM's normal bilaterally Face and sinus: No sinus tenderness Mouth: Normal oral and palatal mucosa present and tongue normal Teeth and gingiva: dentition normal and gingiva normal Throat: Yes posterior oropharynx normal, Yes tonsils normal and Yes uvula midline Eyes Conjunctivae: conjunctivae normal Sclerae: sclerae normal Pupils: Equal, round and reactive pupils present EOM: EOMs intact bilaterally Direct Ophthalmoscopy: No no photophobia Neck Neck: Yes no lymphadenopathy, No tender and Yes no JVD Thyroid: Thyroid normal Carotids: no bruits Chest Chest palpation & inspection: no tenderness Resp Effort & Inspection: normal respiratory effort, no audible wheezes, not labored and no stridor Auscultation: no crackles, no rales, no rhonchi and no wheezes Cardio Jugular venous distension: no JVD Rate: regular rate, not bradycardic and not tachycardic Rhythm: regular rhythm Bruits: no carotid bruits Peripheral pulses: Peripheral pulses 2+ throughout GI Inspection: Yes normal to inspection, No abdominal wall ecchymosis and No visible herniation Palpation (GI): Soft to palpation, nontender, no guarding, not rigid and No hepatosplenomegaly present Auscultation: normoactive bowel sounds General: Yes no CVA tenderness Back/Spine/Pelvis Back: no CVA tenderness and No back tenderness Cervical Spine: cervical ROM normal Thoracic/Lumbar Spine: thoracic and lumbar spine normal to inspection, straight leg raise negative bilaterally, No thoraco-lumbar ROM limited and No lumbar spinal tenderness Skin Lesions: no lesions Rashes: no rashes Wounds: no wounds Neuro General: oriented to person, oriented to place, patient oriented x3, CN's II-XI intact bilaterally and No confusion Cranial nerves: Yes Equal, round and reactive pupils present and Yes Normal accommodation reflex present Cognition (Neuro): normal cognition Speech: No Abnormal speech present Gait exam (Neuro): Normal gait present Motor exam (neuro): 5/5 motor strength present throughout Extrem Right upper extremity: full ROM; no cyanosis Left upper extremity: full ROM; no cyanosis Right lower extremity: no edema Left lower extremity: no edema Psych Appearance: grossly normal Mental Status: mental status grossly normal Affect: normal affect Attitude: cooperative Thought process: Normal thought process present Coding Level of Care Code Est Pt Prev Care 40-64y(96310) Diagnoses Annual physical exam Z00.00 Essential hypertension I10 Hypertension type: essential hypertension Hypercholesterolemia E78.00 ZAHRAA (obstructive sleep apnea) G47.33 Additional Codes HAL-7 Assessment Billing - HAL-7 Assessment Tool: HAL-7 Assessment 62532 ([id number]) PHQ-9 - 98373 - PHQ-9 Billing: Yes ([id number]) Assessment & Plan Assessment & Plan (1) Annual physical exam: Code(s): Z00.00 - Encounter for general adult medical examination without abnormal findings Category: Medical Plan: As per HPI (2) HTN (hypertension): Code(s): I10 - Essential (primary) hypertension Category: Medical Qualifiers: Hypertension type: essential hypertension Qualified Code(s): I10 - Essential (primary) hypertension Plan: Patient's blood pressure elevated today in office. Will increase his dose of valsartan to 320 daily and continue monitoring blood pressure at home with goal blood pressure to be below 140/90. Will continue on current dose of valsartan with goal blood pressure to be below 140/90 Due to his family history of coronary artery disease in his continued high blood pressure in his reports some shortness of breath I will send for cardiac stress test to evaluate for cardiac ischemia on exertion. (3) Hypercholesterolemia: Code(s): E78.00 - Pure hypercholesterolemia, unspecified Category: Medical Plan: Patient's most recent lipid panel showing borderline high cholesterol. . He will continue working on dietary modifications to reduce his high cholesterol. (4) ZAHRAA (obstructive sleep apnea): Comment: THIS GENTLEMAN DOES HAVE H/O OBSTRUCTIVE SLEEP APNEA, OVERALL MILD BUT MILD TO MODERATE IN SUPINE POSITION. HE HAS NOT BEEN ABLE TO USE THE CPAP. CAME TO DISCUSS ABOUT OTHER OPTIONS SUCH INSPIRE. Code(s): G47.33 - Obstructive sleep apnea (adult) (pediatric) Category: Medical Plan: Patient does have pretty severe obstructive sleep apnea. Followed by pulmonology. He has not been able to tolerate CPAP machine mask. He is not deemed a candidate for the inspire device Orders: Orders CA stress test Today R06.02 - Shortness of breath Complete Blood Count no Diff Today D75.1 - Secondary polycythemia Lipid Panel Today E78.9 - Disorder of lipoprotein metabolism, unspecified Microalbumin, Random (w Creat) Today I10 - Essential (primary) hypertension Comprehensive [place]. Panel Fast Today I10 - Essential (primary) hypertension Prostate Specific Antigen Scr Today I10 - Essential (primary) hypertension, Z12.5 - Encounter for screening for malignant neoplasm of prostate Medications: New valsartan 320 mg PO DAILY 90 tabs 1RF 90 days I10 - Essential (primary) hypertension Discontinued valsartan Discontinued Reason: Doctor's Order 160 mg PO DAILY 30 days 30 tabs 2RF I10 - Essential (primary) hypertension
== END 2025-03-25 11:23 | disposition home or self-care (01) ==
LOC: HO.HMCH 10:11
PROVIDERS: PCP Physician Assistant; Visit Provider Physician Assistant
DX: Z00.00 Encounter for general adult medical examination without abnormal findings (principal); I10 Essential (primary) hypertension; E78.00 Pure hypercholesterolemia, unspecified; G47.33 Obstructive sleep apnea (adult) (pediatric)

== ENCOUNTER → 2025-03-25 10:10 | Outpatient (BNVA) | payer OTHER, SELFPAY | PROVIDERS: PCP Physician Assistant; Visit Provider Physician Assistant | DX: Z00.00 Encounter for general adult medical examination without abnormal findings (principal); E78.00 Pure hypercholesterolemia, unspecified; G47.33 Obstructive sleep apnea (adult) (pediatric); I10 Essential (primary) hypertension; F41.1 Generalized anxiety disorder; D75.1 Secondary polycythemia; R06.02 Shortness of breath | CPT/HCPCS: 96127; 99396 ==